=== PATIENT | female | born 1950 | race Caucasian/White ===

== ENCOUNTER → 2017-08-17 08:08 | Outpatient (CLI) | payer MEDICARE, SELFPAY ==
[2015-08-10 15:26] VITALS: BMI 45.2
[2017-08-17 13:39] LABS: Anion Gap 8 (5-15); BUN 17 mg/dL (7-18); BUN/Creat Ratio 28.8 RATIO (10-20); Calcium,Total 8.7 mg/dL (8.5-10.1); Chloride 104 mmol/L (98-107); Creatinine, Serum 0.59 mg/dL (0.55-1.02); EST Glomerular Filtration Rate 108 mL/min (>60); Est Glom Filt Rate - Afr Amer 131 mL/min (>60); Glucose 93 mg/dL (74-106); Potassium 3.8 mmol/L (3.5-5.1); Sodium Level 140 mmol/L (136-145)
== END ==
PROVIDERS: Family Provider Family Medicine; PCP Family Medicine; Visit Provider Internal Medicine
DX: E83.51 Hypocalcemia (principal)
CPT/HCPCS: 80048

== ENCOUNTER → 2018-01-12 13:28 | Outpatient (CLI) | payer MEDICARE, SELFPAY ==
[2018-01-12 14:05] LABS: Mucous, Urine 0 SEEN /hpf (<or=2+); Squamous Epithelial Cells - UA 0 SEEN /hpf (5-10); White Blood Cells 0 SEEN /hpf (0-5)
[2018-01-12 14:24] LABS: Color, Urine Yellow (Yellow); Glucose, Dipstick 100 mg/dl (Normal); Ketone-Dipstick Negative (Negative); Leukocyte Esterase-Dipstick Negative /ul (Negative); Nitrite-Dipstick Negative (Negative); Occult Blood-Urine 25 /ul (Negative); Protein-Dipstick 15 mg/dl (Negative); Urine Bilirubin Dipstick Negative (Negative); Urine Clarity Clear (Clear); Urine Urobilinogen Normal (Normal)
[2018-01-12 14:33] LABS: Bacteria RARE /hpf (None Seen); Red Blood Cells-Urine 0-5 SEEN /hpf (0-5)
[2018-01-12 14:35] LABS: Anion Gap 10 (5-15); BUN 16 mg/dL (7-18); BUN/Creat Ratio 20.9 RATIO (10-20); Calcium,Total 8.5 mg/dL (8.5-10.1); Chloride 101 mmol/L (98-107); Creatinine, Serum 0.76 mg/dL (0.55-1.02); EST Glomerular Filtration Rate 80 mL/min (>60); Est Glom Filt Rate - Afr Amer 97 mL/min (>60); Glucose 129 mg/dL (74-106); Potassium 3.6 mmol/L (3.5-5.1); Rheumatoid Factor < 10.0 IU/mL (<15); Sodium Level 137 mmol/L (136-145)
[2018-01-12 14:37] LABS: Erythrocyte Sedimentation Rate 27 mm/hr (0-30)
[2018-01-12 14:40] LABS: Hemoglobin A1c 5.8 % (4.2-6.3)
[2018-01-16 09:06] LABS: Anti-Nuclear Antibody Test Negative (.)
== END ==
LOC: LABSPEC 13:31
PROVIDERS: Family Provider Internal Medicine; PCP Internal Medicine; Visit Provider Internal Medicine
DX: M19.90 Unspecified osteoarthritis, unspecified site (principal); R35.0 Frequency of micturition
CPT/HCPCS: 80048; 81001; 83036; 85652; 86038; 86140; 86431; 87086; 87088

== ENCOUNTER → 2018-04-12 11:13 | Outpatient (CLI) | payer MEDICARE, SELFPAY ==
[2018-04-12 11:42] LABS: Hemoglobin A1c 5.5 % (4.2-6.3)
[2018-04-12 11:55] LABS: Microalbumin,Random Urine 32.1 mg/L (NO RANGE EST.); Microalbumin:Creatinine Ratio 14.2 mg/g CRE (<30 mg/g CRE)
== END ==
LOC: LABSPEC 11:15
PROVIDERS: Family Provider Internal Medicine; PCP Internal Medicine; Referring Provider Internal Medicine; Visit Provider Internal Medicine
DX: Z79.899 Other long term (current) drug therapy (principal)
CPT/HCPCS: 82043; 82570; 83036

== ENCOUNTER → 2018-08-20 11:59 | Outpatient (CLI) | payer MEDICARE, SELFPAY ==
[2018-08-20 12:41] LABS: Hemoglobin A1c 5.4 % (4.2-6.3)
== END ==
PROVIDERS: Family Provider Internal Medicine; PCP Internal Medicine; Referring Provider Internal Medicine; Visit Provider Internal Medicine
DX: Z79.899 Other long term (current) drug therapy (principal)
CPT/HCPCS: 83036

== ENCOUNTER → 2018-10-24 12:22 | Outpatient (CLI) | payer MEDICARE, SELFPAY ==
[2015-08-10 15:26] VITALS: BMI 45.2
[2018-10-24 13:46] LABS: Mucous, Urine 0 SEEN /hpf (<or=2+); Red Blood Cells-Urine 0 SEEN /hpf (0-5)
[2018-10-24 14:03] LABS: Color, Urine Yellow (Yellow); Glucose, Dipstick Normal (Normal); Ketone-Dipstick 5 mg/dl (Negative); Leukocyte Esterase-Dipstick 500 /ul (Negative); Nitrite-Dipstick Positive (Negative); Occult Blood-Urine 250 /ul (Negative); Protein-Dipstick 100 mg/dl (Negative); Specific Gravity, Urine 1.025 (1.002-1.030); Urine Bilirubin Dipstick Negative (Negative); Urine Clarity Cloudy (Clear); Urine Urobilinogen 1 mg/dl (Normal)
[2018-10-24 14:10] LABS: White Blood Cells >100 SEEN /hpf (0-5)
[2018-10-24 14:11] LABS: Amorphous Sediment 3+; Bacteria 2+ /hpf (None Seen); Squamous Epithelial Cells - UA 0-5 SEEN /hpf (5-10)
== END ==
PROVIDERS: Family Provider Internal Medicine; PCP Internal Medicine; Referring Provider Nurse Practitioner Primary Care; Visit Provider Nurse Practitioner Primary Care
DX: R31.0 Gross hematuria (principal)
CPT/HCPCS: 81001; 87086; 87088; 87186

== ENCOUNTER → 2019-03-06 | Outpatient (CLI) | payer MEDICARE, SELFPAY ==
[2015-08-10 15:26] VITALS: BMI 45.2
[2019-03-06 12:55] LABS: Hemoglobin A1c 5.2 % (4.2-6.3)
[2019-03-06 13:00] LABS: Anion Gap 9 (5-15); BUN 16 mg/dL (7-18); Calcium,Total 8.5 mg/dL (8.5-10.1); Chloride 106 mmol/L (98-107); Creatinine, Serum 0.59 mg/dL (0.55-1.02); EST Glomerular Filtration Rate 107 mL/min (>60); Est Glom Filt Rate - Afr Amer 129 mL/min (>60); Glucose 94 mg/dL (74-106); Potassium 3.5 mmol/L (3.5-5.1); Sodium Level 143 mmol/L (136-145)
[2019-03-06 13:21] LABS: Microalbumin,Random Urine 31.2 mg/L (NO RANGE EST.); Microalbumin:Creatinine Ratio 10.7 mg/g CRE (<30 mg/g CRE)
== END | disposition home or self-care (01) ==
LOC: LABSPEC 12:09
PROVIDERS: Family Provider Internal Medicine; PCP Internal Medicine; Referring Provider Internal Medicine; Visit Provider Internal Medicine
DX: I10 Essential (primary) hypertension (principal); Z79.899 Other long term (current) drug therapy; E66.01 Morbid (severe) obesity due to excess calories
CPT/HCPCS: 80048; 82043; 82570; 83036

== ENCOUNTER → 2019-09-04 | Outpatient (CLI) | payer MEDICARE, SELFPAY ==
[2019-09-04 13:31] LABS: Cholesterol 183 mg/dL (200); High Density Lipoprotein 46 mg/dL; Triglycerides 192 mg/dL; Very Low Density Lipoprotein 38 mg/dL (5-40)
== END | disposition home or self-care (01) ==
LOC: LABSPEC 12:13
PROVIDERS: PCP Internal Medicine; Referring Provider Internal Medicine; Visit Provider Internal Medicine
DX: I10 Essential (primary) hypertension (principal)
CPT/HCPCS: 80061

== ENCOUNTER → 2020-02-24 | Outpatient (CLI) | payer MEDICARE, SELFPAY ==
[2015-08-10 15:26] VITALS: BMI 45.2
[2020-02-24 15:50] LABS: Anion Gap 4 (5-15); BUN 18 mg/dL (7-18); BUN/Creat Ratio 29.6 RATIO (10-20); Calcium,Total 8.7 mg/dL (8.5-10.1); Chloride 107 mmol/L (98-107); Creatinine, Serum 0.61 mg/dL (0.55-1.02); EST Glomerular Filtration Rate 103 mL/min (>60); Est Glom Filt Rate - Afr Amer 125 mL/min (>60); Glucose 93 mg/dL (74-106); Potassium 4.1 mmol/L (3.5-5.1); Sodium Level 141 mmol/L (136-145)
== END | disposition home or self-care (01) ==
LOC: LABSPEC 12:42
PROVIDERS: PCP Internal Medicine; Referring Provider Internal Medicine; Visit Provider Internal Medicine
DX: E87.6 Hypokalemia (principal)
CPT/HCPCS: 80048

== ENCOUNTER → 2020-06-29 09:34 | Outpatient (CLI) | payer MEDICARE, SELFPAY ==
--- NOTE | 2020-06-29 09:45 | MRI_ITS ---
STUDY: MRI BRAIN WITH AND WITHOUT CONTRAST REASON FOR EXAM: Female, 70 years old. aphasia, weakness, memory issues x 6 months TECHNIQUE: Standardized multiplanar fat and water weighted pulse sequences were obtained. IV dotarem 24ml was administered for the contrast portion of the examination. COMPARISON: 02/04/2008. FINDINGS: Normal size of the ventricles and extra-axial spaces for the patient''s age. Normal white matter tracts of the supratentorial brain. Normal bilateral basal ganglia. Normal thalami. There is no extra-axial fluid accumulation. Normal flow voids within the major intracranial circulation suggesting patency by spin echo criteria. Normal venous enhancement. There is no enhancing intra-axial or extra-axial abnormality. Normal sella turcica, pituitary gland, infundibular stalk, optic chiasm and hypothalamus. Normal tectal plate and pineal gland. Normal midbrain, wilmer and medulla. Normal cerebellum. Normal basal cisterns. MRI/Brain W/WO Contrast IMPRESSION: Unremarkable unenhanced and enhanced MRI of the brain. Electronically Signed: Lisandro Nicholas MD at 13:16 EST Tel , Service support ,
[2020-06-29 10:21] LABS: Creatinine, Serum 0.69 mg/dL (0.55-1.02); EST Glomerular Filtration Rate 90 mL/min (>60); Est Glom Filt Rate - Afr Amer 109 mL/min (>60)
== END ==
PROVIDERS: PCP Internal Medicine; Referring Provider Psychiatry & Neurology Neurology; Visit Provider Psychiatry & Neurology Neurology
DX: R47.01 Aphasia (principal)
CPT/HCPCS: 36415; 70553; 82565; A9575

== ENCOUNTER 2020-07-13 09:00 | Outpatient (RCR) | payer MEDICARE, SELFPAY ==
--- NOTE | 2020-06-17 14:35 | HP.PTEVAL_ITS ---
Patient's Visit Information JAMES BURTON is a 70 year old F referred to Physical Therapy by Dr. Jordi Siddiqui MD with a diagnosis of Imbalance adn leg weakness.. Date of Evaluation: 06/17/20 Physical Therapist: Agustin Palomares DPT, OCS, CSCS - Visit Plan Frequency: 3x /Week Duration: 4-6 Weeks Plan: 3x/week for 3-6 weeks for... 1. teach gym based LE strength for eventual silver sneakers with list. 2. Teach HS and gastroc stretches for HEP. 3. Teach vestibular balance(foam, ec, static and dynamic) with pics for HEP - Subjective Having balance issues for 6 months now, not sure what started it. Can be standing in middle of room adn fall over. Usually this is with turns or some movement. No spinning. No neuropathy. Sees neuro due to memory loss and balance. Has fallen about 20x in last 6 months. Uses walker at home adn cane when out, but it is in the car right now. Does not fall with these devices. Legs feel like jellpo at end of day. Sleep OK. Has sleep apnea. No pain. Retired. Spends day regular housework, cooking. 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 Does everything she needs to do, just falls sometimes. No hobbies. Last fallw as 3 weeks ago walking into dining room - Objective VOR walking is tolerable and fair balance. Walks back to therapy I although slow. Trasnfers with UE I. Steps require UE due to strength adn lack of fw weight shift. reflexes patella and achilles 0/3 B. Sensation LE WNL to gross light touch B. Strength LE 3+ hip abd/ext/4- flexion, knee flex/ext 4 and ankles 4 B. Coordination to reciprocal toe tapping min deficts in toe tap and normal in heel tap. ROM WFL in LE, HS and gastroc/soleus show tightness B. - Balance Scores Functional Gait Assessment Score: 25 % Disability: 16.6700 CATSIB Score (Max score 120 seconds): 92 - Goals Goal 1:: FGA to diminish fall risk Goal Time Frame: 4-6 Weeks Goal 2:: I approp HEP to minimize future problems(LE strength in gym, vest balance and post leg stretches.) Goal Time Frame: 4-6 Weeks Goal 3:: Pt feel 75% more steady adn mobile Goal Time Frame: 4-6 Weeks - Rehabilitation Potential Physical Therapy Diagnosis: Imbalance and weakness from sedentarism Rehabilitation Potential: Good - Anticipated Interventions Patient/Client Instruction: Educate patient on: Condition, Plan of Care For the Purpose of:: To improve muscle performance and motor function, To increase tolerance to activity/condition/position, To improve balance, To improve safety with gait Therapeutic Exercise to Include: Strength training, Balance training, Flexibilty training, Neuromotor development For the Purpose of:: To improve gait and locomotor functions, To improve balance, To improve safety with gait Thank you for the opportunity to evaluate your patient. For Medicare and Medicare HMO plans, please review the plan of care and approve it. It will need to be FAXED BACK to us at [phone] for Medicare purposes. For Medicare only, by signing this I certify the plan of care. Please let me know if there are questions or concerns regarding this plan of care. Physician Signature: ___Date:
--- NOTE | 2020-07-13 09:40 | HP.PTDCSUM ---
It has been my pleasure to treat JAMES BURTON referred by Dr. Jordi Siddiqui MD, with the diagnosis of Imbalance adn leg weakness. for a total of 12 visit(s). Discharge Date: 07/13/20 Please see the following information for a summary of their discharge status. Subjective: Real good. Better. Able to do new things at home like getting breakfast adn housework. Safer. Doing exercises at home and in clinic. No doctor f/u. Life activities are pretty normal. % Improvement: 100 Objective/Function: FGA is +2, goals are met and pt is confident that she is much better and can continue on her own via HEP and gym exercises. Goal 1:: FGA to diminish fall risk Goal Progress: Goal Met Goal 2:: I approp HEP to minimize future problems(LE strength in gym, vest balance and post leg stretches.) Goal Progress: Goal Met Goal 3:: Pt feel 75% more steady adn mobile Goal Progress: Goal Met Plan: d/c If there are questions or concerns regarding this patient's physical therapy, please feel free to call me at [phone]. Thank you for the referral of this patient. Sincerely, Agustin Palomares, DPT, OCS, CSCS
== END 2020-07-13 19:00 | disposition home or self-care (01) ==
LOC: PT 09:00
PROVIDERS: PCP Internal Medicine; Referring Provider Psychiatry & Neurology Neurology; Visit Provider Psychiatry & Neurology Neurology
DX: R29.898 Other symptoms and signs involving the musculoskeletal system (principal)
CPT/HCPCS: 97110; 97162; 97164

== ENCOUNTER → 2020-09-23 | Outpatient (CLI) | payer MEDICARE, SELFPAY ==
[2015-08-10 15:26] VITALS: BMI 45.2
[2020-09-23 12:49] LABS: Absolute Lymphocyte Count 2.37 X10^3/uL (0.83-4.51); Absolute Neutrophil Count 5.9 X10^3/uL (2.0-7.7); Basophil# 0.05 X10^3/uL; Basophil% 0.5 % (0-1); Eosinophil# 0.31 X10^3/uL; Eosinophils% 3.3 % (0-5); Hematocrit 43.3 % (37-47); Hemoglobin 13.7 g/dL (12.0-15.0); Lymphocyte # 2.37 X10^3/ul (4.0); Lymphocyte % 25.1 % (19-41); Mean Corp Hgb Conc 31.6 g/dL (32-36); Mean Corpuscular Hgb 29.1 pg (27.0-32.0); Mean Corpuscular Volume 92.1 fL (81-99); Mean Platelet Vol. 10.3 fl (6.2-12.0); Monocyte# 0.76 X10^3/uL; Monocyte% 8.1 % (0-10); NRBC Flagged by Analyzer 0 % (0-5); Neutrophil % 62.6 % (47-70); Platelet Count 407 K/mm3 (150-450); RBC Distribution Width CV 13.4 % (11.6-14.6); RBC Distribution Width SD 45.6 fl (35.1-43.9); White Blood Count 9.4 K/mm3 (4.4-11.0)
[2020-09-23 13:14] LABS: Vitamin B12 382 pg/mL (211-911); Vitamin D,25 Hydroxy 10.4 ng/mL
[2020-09-23 13:36] LABS: ALB/GLOB Ratio 1.1 RATIO (0.9-2.4); AST(SGOT) 19 U/L (15-37); Alanine Aminotransfer ALT/SGPT 25 U/L (13-56); Albumin, Serum 3.6 g/dL (3.2-5.0); Alkaline Phosphatase 69 U/L (45-117); Anion Gap 8 (5-15); BUN 17 mg/dL (7-18); BUN/Creat Ratio 27.4 RATIO (10-20); Calcium,Total 8.3 mg/dL (8.5-10.1); Chloride 104 mmol/L (98-107); Cholesterol 193 mg/dL (200); Creatinine, Serum 0.62 mg/dL (0.55-1.02); EST Glomerular Filtration Rate 101 mL/min (>60); Est Glom Filt Rate - Afr Amer 122 mL/min (>60); Globulin 3.4 g/dL (2.2-4.2); Glucose 92 mg/dL (74-106); High Density Lipoprotein 59 mg/dL; Potassium 3.4 mmol/L (3.5-5.1); Sodium Level 139 mmol/L (136-145); Thyroid Stim Hormone (TSH) 1.66 uIU/mL (0.358-3.74); Triglycerides 193 mg/dL; Very Low Density Lipoprotein 39 mg/dL (5-40)
== END | disposition home or self-care (01) ==
LOC: LABSPEC 12:35
PROVIDERS: PCP Internal Medicine; Referring Provider Internal Medicine; Visit Provider Internal Medicine
DX: I10 Essential (primary) hypertension (principal); E55.9 Vitamin D deficiency, unspecified; G57.91 Unspecified mononeuropathy of right lower limb; E78.2 Mixed hyperlipidemia
CPT/HCPCS: 80053; 80061; 82306; 82607; 84443; 85025

== ENCOUNTER → 2021-01-01 | Outpatient (CLI) | payer MEDICARE, SELFPAY ==
[2015-08-10 15:26] VITALS: BMI 45.2
[2021-01-01 11:52] LABS: Cholesterol 194 mg/dL (200); High Density Lipoprotein 58 mg/dL; Triglycerides 128 mg/dL; Very Low Density Lipoprotein 26 mg/dL (5-40)
[2021-01-01 11:57] LABS: Vitamin B12 634 pg/mL (211-911)
== END | disposition home or self-care (01) ==
LOC: LABSPEC 11:28
PROVIDERS: PCP Internal Medicine; Visit Provider Internal Medicine
DX: I10 Essential (primary) hypertension (principal); E55.9 Vitamin D deficiency, unspecified; E53.8 Deficiency of other specified B group vitamins
CPT/HCPCS: 80061; 82306; 82607

== ENCOUNTER → 2021-03-17 | Outpatient (CLI) | payer MEDICARE, SELFPAY | END | disposition home or self-care (01) | LOC: LABSPEC 17:05 | PROVIDERS: PCP Internal Medicine; Visit Provider Physician Assistant | DX: R35.0 Frequency of micturition (principal) | CPT/HCPCS: 87086; 87088 ==

== ENCOUNTER 2021-03-23 09:40 | Inpatient (IN) | payer MEDICARE, SELFPAY ==
[2021-03-23] VITALS (28 sets, daily range): BP systolic 106–174; BP diastolic 55–98; PULSE 86–105; RESP 12–43; TEMP 36.9–37.6; O2SAT 83–96; BMI 48.2; BMI 47.7
--- NOTE | 2021-03-23 09:56 | RAD_ITS ---
STUDY: X-RAY CHEST REASON FOR EXAM: Female, 70 years old. Shortness of breath TECHNIQUE: Frontal view of the chest COMPARISON: None. FINDINGS: There are multifocal airspace opacities in both lungs, left greater than right. There are no pleural effusions. There is no pneumothorax. The heart is normal in size. The visualized osseous structures are within normal limits. RAD/Chest 1 View (Portable) IMPRESSION: Multi lobar pneumonia which is more pronounced in the left lung. COVID Pneumonia should be excluded. Electronically Signed: Max Oswald MD at 10:28 EDT Tel , Service support ,
--- NOTE | 2021-03-23 10:06 | ED.VIS.DYS ---
HPI History of Present Illness Chief Complaint: Shortness of Breath Narrative Narrative: 70-year-old female presenting with shortness of breath. She states she has been this way since Monday. She was told she has a urinary tract infection and she has been on Keflex. Patient admits to having multiple episodes of diarrhea since Monday. She has generalized weakness. She is had a fever of 101 at home intermittently. She denies chest pain but admits to shortness of breath. Patient has had the first shot of her Pfizer vaccine 2 weeks ago. Patient states she wears CPAP at night but does not wear oxygen on a regular basis. [facility] Medical History (Updated 03/23/21 @ 10:51 by Heidi Pagan) Hypertension Home Medications aspirin 325 mg PO BIDCM #60 tablet 08/12/15 [Rx Last Taken Unknown] hydrocodone-acetaminophen 1 - 2 tab PO Q4H PRN PRN #90 tablet 08/12/15 [Rx Last Taken Unknown] scopolamine base 1.5 mg TRANSDERMAL Q3D #5 patch 08/12/15 [Rx Last Taken Unknown] cephalexin 500 mg PO 03/23/21 [History Last Taken Unknown] hydrochlorothiazide 12.5 mg PO DAILY 03/23/21 [History Last Taken Unknown] Allergy/AdvReac Type Severity Reaction Status Date / Time Sulfa (Sulfonamide Allergy Mucosal Verified 03/23/21 09:52 Antibiotics) lesions meperidine HCl [From Demerol] AdvReac Nausea/Vom/ Verified 03/23/21 09:52 Diarrhea Social History Smoking Status: Never smoker [facility] ED Constitutional Constitutional ED: Reports chills and fever(s) Eyes Eyes: Denies blurry vision or diplopia ENT ENT ED: Denies rhinorrhea or sore throat Cardiovascular Cardiovascular: Denies chest pain or palpitations Respiratory/Chest Respiratory/Chest: Reports cough and dyspnea Gastrointestinal Gastrointestinal: Reports abdominal pain, diarrhea, nausea and vomiting Genitourinary Genitourinary ED: Reports dysuria; Denies hematuria Musculoskeletal Musculoskeletal: Reports myalgias Integumentary Denies Abrasions or rash Neurologic Neurologic: Reports paresthesias; Denies headache(s) EXAM Physical Exam Const Vital Signs: 03/23/21 09:42 03/23/21 09:49 03/23/21 09:50 Temperature 99.6 F H 99.6 F H Temperature Source Temporal Temporal Pulse Rate 92 92 Respiratory Rate 21 H 21 H Respiratory Effort Short of Breath Labored Accessory Muscle Use Respiratory Depth Shallow Respiratory Pattern Irregular Blood Pressure 139/78 H 139/78 H Blood Pressure Mean 98 98 Pulse Ox 86 86 Oxygen Delivery Method Nasal Cannula Nasal Cannula Nasal Cannula Oxygen Flow Rate (L/min) 9 9 10 Fraction of Inspired Oxygen (FIO2) 03/23/21 10:02 03/23/21 10:43 03/23/21 10:49 Temperature 99.7 F H Temperature Source Temporal Pulse Rate 88 90 Respiratory Rate 35 H 33 H Respiratory Effort Respiratory Depth Respiratory Pattern Blood Pressure 145/84 H Blood Pressure Mean 104 Pulse Ox 90 96 90 Oxygen Delivery Method Nasal Cannula Bi-pap Oxygen Flow Rate (L/min) 15 Fraction of Inspired Oxygen (FIO2) 50 03/23/21 11:00 03/23/21 11:02 03/23/21 11:54 Temperature 99.2 F H Temperature Source Temporal Pulse Rate 91 86 Respiratory Rate 34 H 32 H Respiratory Effort Respiratory Depth Respiratory Pattern Blood Pressure 145/84 H Blood Pressure Mean 104 Pulse Ox 90 91 95 Oxygen Delivery Method Bi-pap Oxygen Flow Rate (L/min) Fraction of Inspired Oxygen (FIO2) 60 60 03/23/21 12:02 03/23/21 13:00 03/23/21 13:14 Temperature 99.2 F H 99 F Temperature Source Temporal Temporal Pulse Rate 87 86 93 Respiratory Rate 33 H 35 H 31 H Respiratory Effort Respiratory Depth Respiratory Pattern Blood Pressure 126/95 H 152/82 H Blood Pressure Mean 105 105 Pulse Ox 89 90 91 Oxygen Delivery Method Bi-pap Bi-pap Oxygen Flow Rate (L/min) Fraction of Inspired Oxygen (FIO2) 60 03/23/21 14:00 03/23/21 14:13 Temperature 98.4 F Temperature Source Temporal Pulse Rate 93 91 Respiratory Rate 38 H 38 H Respiratory Effort Respiratory Depth Respiratory Pattern Blood Pressure 169/89 H Blood Pressure Mean 115 Pulse Ox 92 94 Oxygen Delivery Method Bi-pap Oxygen Flow Rate (L/min) Fraction of Inspired Oxygen (FIO2) 100 100 Positive well nourished and obese Nutritional Appearance: obese HEENT Reports moist mucous membranes atraumatic Eyes PERRL and EOMs intact bilaterally Resp Resp Narrative: Tachypneic Effort and Inspection: Negative for pain with movement Auscultation: diminished lung sounds Cardio regular rate and regular rhythm GI non-distended GI Narrative: Mild epigastric tenderness. Palpation: soft Neuro oriented x3 and CN's II-XII intact bilaterally Sensorium / Orientation: alert Psych mental status grossly normal Skin Lesions: no lesions Rashes: no rashes MDM MDM MDM Narrative Medical decision making narrative: Patient presenting with shortness of breath as well as nausea, vomiting, diarrhea. This is been ongoing since Monday. Patient states he has currently been treated for UTI with Keflex. She had multiple episodes of diarrhea. She states that her is ill but is not hospitalized. Patient does not typically have to wear oxygen and she arrives with a pulse ox of 86% on room air. She has been placed on a nasal cannula she is currently at 90%. She denies any chest pain. I did initially attempt to put her on nasal cannula however she maintain sats in the mid 80s. For this reason she was placed on BiPAP and appears to be doing well on it. She is maintaining O2 sats of 92 to 93%. CBC shows no leukocytosis. Patient is lymphopenic. Patient also was hyponatremic with a sodium 128 and hypokalemic with a potassium of 2.8. Patient is given 40 mEq of potassium IV because she is currently on BiPAP. Magnesium is 1.7. Lactic acid was slightly elevated at 2.3. Chest x-ray on my interpretation shows multi lobar pneumonia and the radiologist does agree. Patient had an elevated D-dimer at 3.27 and had a CTA of the chest which did not identify any pulmonary emboli or dissection. This also did not imply multilobar pneumonia. Patient's initial Covid test was negative however given she would need to be admitted to the ICU I did obtain the PCR test which did return positive.Patient's EKG on my interpretation shows a sinus rhythm at [address] changes. Troponin did return elevated at 114. I discussed this with Dr. Rivera and he reviewed the EKG as well. He felt likely the troponin was elevated due to the hypoxia. Impression: 1. COVID-19 pneumonitis 2. Hypoxic respiratory failure 3. Hypokalemia 4. Hyponatremia Lab Data Attestation: I reviewed the patient's lab results. Labs: Laboratory Results - last 24 hr 03/23/21 03/23/21 03/23/21 10:05 10:05 10:05 WBC 8.6 RBC 5.02 Hgb 14.5 Hct 43.0 MCV 85.7 MCH 28.9 MCHC 33.7 RDW Std Deviation 40.7 RDW Coeff of Sebastian 13.1 Plt Count 352 MPV 8.9 Immature Gran % (Auto) 1.600 H Neut % (Auto) 80.4 H Lymph % (Auto) 10.7 L Hoke % (Auto) 7.1 Eos % (Auto) 0.0 Baso % (Auto) 0.2 Absolute Neuts (auto) 6.9 Absolute Lymphs (auto) 0.92 Nucleated RBC % 0 D-Dimer Quant (PE/DVT) 3.27 H* Sodium 128 L Potassium 2.8 L Chloride 86 L Carbon Dioxide 32.0 Anion Gap 10 BUN 12 Creatinine 0.58 Estim Creat Clear Calc 41.40 Est GFR (MDRD) Af Amer 131 Est GFR (MDRD) Non-Af 109 BUN/Creatinine Ratio 20.6 H Glucose 133 H Lactic Acid Calcium 8.1 L Magnesium Total Bilirubin 0.90 AST 94 H ALT 86 H Alkaline Phosphatase 74 Troponin I High Sens 114 H Total Protein 6.8 Albumin 2.6 L Globulin 4.2 Albumin/Globulin Ratio 0.6 L Procalcitonin Urine Color Urine Clarity Urine pH Ur Specific [place] Urine Protein Urine Glucose (UA) Urine Ketones Urine Occult Blood Urine Nitrite Urine Bilirubin Urine Urobilinogen Ur Leukocyte Esterase Urine RBC Urine WBC Ur Squamous Epith Cells Urine Bacteria Urine Mucus COVID-19 (BENITO) 03/23/21 03/23/21 03/23/21 10:05 10:05 10:05 WBC RBC Hgb Hct MCV MCH MCHC RDW Std Deviation RDW Coeff of Sebastian Plt Count MPV Immature Gran % (Auto) Neut % (Auto) Lymph % (Auto) Hoke % (Auto) Eos % (Auto) Baso % (Auto) Absolute Neuts (auto) Absolute Lymphs (auto) Nucleated RBC % D-Dimer Quant (PE/DVT) Sodium Potassium Chloride Carbon Dioxide Anion Gap BUN Creatinine Estim Creat Clear Calc Est GFR (MDRD) Af Amer Est GFR (MDRD) Non-Af BUN/Creatinine Ratio Glucose Lactic Acid 2.3 H* Calcium Magnesium 1.7 Total Bilirubin AST ALT Alkaline Phosphatase Troponin I High Sens Total Protein Albumin Globulin Albumin/Globulin Ratio Procalcitonin 0.14 H Urine Color Urine Clarity Urine pH Ur Specific [place] Urine Protein Urine Glucose (UA) Urine Ketones Urine Occult Blood Urine Nitrite Urine Bilirubin Urine Urobilinogen Ur Leukocyte Esterase Urine RBC Urine WBC Ur Squamous Epith Cells Urine Bacteria Urine Mucus COVID-19 (BENITO) 03/23/21 03/23/21 10:58 11:15 WBC RBC Hgb Hct MCV MCH MCHC RDW Std Deviation RDW Coeff of Sebastian Plt Count MPV Immature Gran % (Auto) Neut % (Auto) Lymph % (Auto) [place]oke % (Auto) Eos % (Auto) Baso % (Auto) Absolute Neuts (auto) Absolute Lymphs (auto) Nucleated RBC % D-Dimer Quant (PE/DVT) Sodium Potassium Chloride Carbon Dioxide Anion Gap BUN Creatinine Estim Creat Clear Calc Est GFR (MDRD) Af Amer Est GFR (MDRD) Non-Af BUN/Creatinine Ratio Glucose Lactic Acid Calcium Magnesium Total Bilirubin AST ALT Alkaline Phosphatase Troponin I High Sens Total Protein Albumin Globulin Albumin/Globulin Ratio Procalcitonin Urine Color Yellow Urine Clarity Clear Urine pH 6.5 Ur Specific [place] 1.010 Urine Protein 100 H Urine Glucose (UA) 100 H Urine Ketones 5 H Urine Occult Blood 50 H Urine Nitrite Negative Urine Bilirubin 1 H Urine Urobilinogen 8 H Ur Leukocyte Esterase 25 H Urine RBC 0-5 SEEN Urine WBC 0-5 SEEN Ur Squamous Epith Cells 0-5 SEEN Urine Bacteria 0 SEEN Urine Mucus 0 SEEN COVID-19 (BENITO) Detected Radiography Diagnostic Testing: Radiology Impression Chest X-Ray 03/23/21 09:56 IMPRESSION: Multi lobar pneumonia which is more pronounced in the left lung. COVID Pneumonia should be excluded. Electronically Signed: Max Oswald MD at 10:28 EDT Tel , Service support , Chest CTA 03/23/21 13:07 IMPRESSION: Significantly limited study. No central or proximal segmental pulmonary embolus. The remainder of the examination is nondiagnostic. No thoracic aortic aneurysm or dissection. Multifocal ground glass opacities throughout both lungs, consistent with pneumonia. Hepatic cysts. Electronically Signed: Max Oswald MD at 13:57 EDT Tel , Service support , Discharge Plan Triage Chief Complaint: Shortness of Breath ED Provider: Saurav Sawant Dx/Rx/DC Orders Primary Care Provider: Selina Barrios
[2021-03-23 10:17] LABS: Absolute Lymphocyte Count 0.92 X10^3/uL (0.83-4.51); Absolute Neutrophil Count 6.9 X10^3/uL (2.0-7.7); Basophil# 0.02 X10^3/uL; Basophil% 0.2 % (0-1); Hemoglobin 14.5 g/dL (12.0-15.0); Lymphocyte # 0.92 X10^3/ul (0.83-4.51); Lymphocyte % 10.7 % (19-41); Mean Corp Hgb Conc 33.7 g/dL (32-36); Mean Corpuscular Hgb 28.9 pg (27.0-32.0); Mean Corpuscular Volume 85.7 fL (81-99); Mean Platelet Vol. 8.9 fl (6.2-12.0); Monocyte# 0.61 X10^3/uL; Monocyte% 7.1 % (0-10); NRBC Flagged by Analyzer 0 % (0-5); Neutrophil # 6.92 X10^3/uL (2.7-7.7); Neutrophil % 80.4 % (47-70); Platelet Count 352 K/mm3 (150-450); RBC Distribution Width CV 13.1 % (11.6-14.6); RBC Distribution Width SD 40.7 fl (35.1-43.9); Red Blood Count 5.02 M/mm3 (4.2-5.4); White Blood Count 8.6 K/mm3 (4.4-11.0)
[2021-03-23 10:33] LABS: D-Dimer Quantitative (DVT/PE) 3.27 FEU/ug/m (0.27-0.49)
[2021-03-23 10:37] LABS: ALB/GLOB Ratio 0.6 RATIO (0.9-2.4); AST(SGOT) 94 U/L (15-37); Alanine Aminotransfer ALT/SGPT 86 U/L (13-56); Albumin, Serum 2.6 g/dL (3.2-5.0); Alkaline Phosphatase 74 U/L (45-117); Anion Gap 10 (5-15); BUN 12 mg/dL (7-18); BUN/Creat Ratio 20.6 RATIO (10-20); Calcium,Total 8.1 mg/dL (8.5-10.1); Chloride 86 mmol/L (98-107); Creatinine, Serum 0.58 mg/dL (0.55-1.02); EST Glomerular Filtration Rate 109 mL/min (>60); Est Glom Filt Rate - Afr Amer 131 mL/min (>60); Globulin 4.2 g/dL (2.2-4.2); Glucose 133 mg/dL (74-106); Potassium 2.8 mmol/L (3.5-5.1); Protein, Total 6.8 g/dL (6.4-8.2); Sodium Level 128 mmol/L (136-145); Troponin-I HS 114 pg/mL (3.0-54.0)
[2021-03-23 10:40] LABS: Procalcitonin 0.14 ng/mL (0.00-0.09)
[2021-03-23 10:45] LABS: Lactic Acid 2.3 mmol/L (0.4-1.9)
[2021-03-23 11:18] LABS: Bacteria 0 SEEN /hpf (None Seen); Mucous, Urine 0 SEEN /hpf (<or=2+)
[2021-03-23 11:19] LABS: Color, Urine Yellow (Yellow); Glucose, Dipstick 100 mg/dl (Normal); Ketone-Dipstick 5 mg/dl (Negative); Leukocyte Esterase-Dipstick 25 /ul (Negative); Nitrite-Dipstick Negative (Negative); Occult Blood-Urine 50 /ul (Negative); Protein-Dipstick 100 mg/dl (Negative); Urine Bilirubin Dipstick 1 mg/dL (Negative); Urine Clarity Clear (Clear); Urine Urobilinogen 8 mg/dl (Normal); Urine pH 6.5 (5.0 - 8.0)
[2021-03-23 11:26] LABS: Red Blood Cells-Urine 0-5 SEEN /hpf (0-5); Squamous Epithelial Cells - UA 0-5 SEEN /hpf (5-10); White Blood Cells 0-5 SEEN /hpf (0-5)
[2021-03-23] MEDS: Ondansetron 4 MG/2 ML Vial IV ×2 (11:35→18:04)
--- NOTE | 2021-03-23 13:07 | CT_ITS ---
STUDY: CTA CHEST REASON FOR EXAM: Female, 70 years old. Dyspnea RADIATION DOSAGE (If Supplied By Facility): CTDIvol = ( 15.04 ) mGy, DLP = ( 450.31 ) mGycm TECHNIQUE: The examination was performed with the intravenous administration of IV 100mL [id number]-370. Post-processing of the angiographic images was performed, with multiplanar reformation and 3D reconstruction. Individualized dose optimization techniques were used for this CT. COMPARISON: None. FINDINGS: The study is significantly limited by patient motion and by streak artifact due to the patient''s arms being at her sides. There are multifocal ground glass opacities throughout both lungs. There are no pleural effusions. There is no pneumothorax. There is no central or proximal segmental pulmonary embolus. The remainder of the examination is nondiagnostic. There is no thoracic aortic aneurysm or dissection. The heart and pericardium are within normal limits. There is no thoracic lymphadenopathy. Images through the upper abdomen demonstrate multiple hepatic cysts which are not fully visualized on this exam. CT/CTA Chest W/WO Contrast IMPRESSION: Significantly limited study. No central or proximal segmental pulmonary embolus. The remainder of the examination is nondiagnostic. No thoracic aortic aneurysm or dissection. Multifocal ground glass opacities throughout both lungs, consistent with pneumonia. Hepatic cysts. Electronically Signed: Max Oswald MD at 13:57 EDT Tel , Service support ,
[2021-03-23 14:15] LABS: Reflex Lactate? Y
--- NOTE | 2021-03-23 14:15 | NURSING ---
HOSPITALIST FOR DR DUKES
--- NOTE | 2021-03-23 14:21 | HP.PCM.HOS_ITS ---
HPI - General General Date of Admission: 03/23/21 Date of Service: 03/23/21 Chief Complaint: Shortness of breath - 1 week HPI Narrative JAMES BURTON, is a 70 F who presents with progressive shortness of breath ongoing for 1 week. Patient stated that she cut vaccinated 2 weeks ago.. Patient lives with her who is also unwell. She admits to general aches. Denied fever or chills. She admits to progressive shortness of breath. Denies any loss of smell or taste. Denied any fever or chills. Admits to diarrhea. She has had 2 bowel movements today, loose, nonbloody. The EMS was called. Patient was found to be saturating on 15 L of oxygen via nonrebreather mask. In the ED, patient was found to be saturating 86% on 9 L of oxygen. She was transitioned to BiPAP. [facility] Medical History CPAP (continuous positive airway pressure) dependence Hypertension Sleep apnea Home Medications aspirin 325 mg PO BIDCM #60 tablet 08/12/15 [Rx Last Taken Unknown] hydrocodone-acetaminophen 1 - 2 tab PO Q4H PRN PRN #90 tablet 08/12/15 [Rx Last Taken Unknown] scopolamine base 1.5 mg TRANSDERMAL Q3D #5 patch 08/12/15 [Rx Last Taken Unknown] cephalexin 500 mg PO 03/23/21 [History Last Taken Unknown] hydrochlorothiazide 12.5 mg PO DAILY 03/23/21 [History Last Taken Unknown] Allergy/AdvReac Type Severity Reaction Status Date / Time Sulfa (Sulfonamide Allergy Mucosal Verified 03/23/21 09:52 Antibiotics) lesions meperidine HCl [From Demerol] AdvReac Nausea/Vom/ Verified 03/23/21 09:52 Diarrhea Family History Mother No problems noted. unable to obtain unable to obtain Social History (Updated 03/23/21 @ 17:09 by Heidi Brooks) household members: spouse Smoking Status: Never smoker ROS ROS Narrative Constitutional: Reports: Malaise, Weakness, Fatigue. Denies: Anorexia, Chills, Fever, Night Sweats, Weight Change Eyes: Denies: Blurred vision, Cataracts, Conjunctivae Inflammation, Pain, Redness, Vision Change HEENT: Denies: Difficulty Hearing, Difficulty Swallowing, Head Aches, Hearing Changes, Sinus Congestion, Sinus Drainage Cardiovascular: Denies: Chest Pain, Orthopnea, Palpitations Respiratory: See HPI Gastrointestinal: Admits to diarrhea denies: Abdominal Pain, Nausea, Vomiting Genitourinary: Denies: Dysuria Musculoskeletal: Denies: Joint Pain, Joint stiffness, Joint swelling, Joint Tenderness Skin: Denies: Rash, Wounds Neurological: Denies: Numbness, Tingling, Focal weakness Vital Signs Vital Signs Vital Signs: 03/23/21 09:42 03/23/21 09:49 03/23/21 09:50 Temperature 99.6 F H 99.6 F H Temperature Source Temporal Temporal Pulse Rate 92 92 Respiratory Rate 21 H 21 H Respiratory Effort Short of Breath Labored Accessory Muscle Use Respiratory Depth Shallow Respiratory Pattern Irregular Blood Pressure 139/78 H 139/78 H Blood Pressure Mean 98 98 Pulse Ox 86 86 Oxygen Delivery Method Nasal Cannula Nasal Cannula Nasal Cannula Oxygen Flow Rate (L/min) 9 9 10 Fraction of Inspired Oxygen (FIO2) 03/23/21 10:02 03/23/21 10:43 03/23/21 10:49 Temperature 99.7 F H Temperature Source Temporal Pulse Rate 88 90 Respiratory Rate 35 H 33 H Respiratory Effort Respiratory Depth Respiratory Pattern Blood Pressure 145/84 H Blood Pressure Mean 104 Pulse Ox 90 96 90 Oxygen Delivery Method Nasal Cannula Bi-pap Oxygen Flow Rate (L/min) 15 Fraction of Inspired Oxygen (FIO2) 50 03/23/21 11:00 03/23/21 11:02 03/23/21 11:54 Temperature 99.2 F H Temperature Source Temporal Pulse Rate 91 86 Respiratory Rate 34 H 32 H Respiratory Effort Respiratory Depth Respiratory Pattern Blood Pressure 145/84 H Blood Pressure Mean 104 Pulse Ox 90 91 95 Oxygen Delivery Method Bi-pap Oxygen Flow Rate (L/min) Fraction of Inspired Oxygen (FIO2) 60 60 03/23/21 12:02 03/23/21 13:00 03/23/21 13:14 Temperature 99.2 F H 99 F Temperature Source Temporal Temporal Pulse Rate 87 86 93 Respiratory Rate 33 H 35 H 31 H Respiratory Effort Respiratory Depth Respiratory Pattern Blood Pressure 126/95 H 152/82 H Blood Pressure Mean 105 105 Pulse Ox 89 90 91 Oxygen Delivery Method Bi-pap Bi-pap Oxygen Flow Rate (L/min) Fraction of Inspired Oxygen (FIO2) 60 03/23/21 14:13 Temperature Temperature Source Pulse Rate 91 Respiratory Rate 38 H Respiratory Effort Respiratory Depth Respiratory Pattern Blood Pressure Blood Pressure Mean Pulse Ox 94 Oxygen Delivery Method Oxygen Flow Rate (L/min) Fraction of Inspired Oxygen (FIO2) 100 Weight Weight: 119.7 kg Body Mass Index (BMI) 48.2 Physical Exam Narrative Physical exam: General: Alert, Oriented x3, Cooperative, in mild to moderate respiratory distress, on BiPAP HEENT: Atraumatic Oral: Dry Mucosa Neck: Supple Lungs: Diminished, crackles at the bases Cardiovascular: HS I+II, regular, no murmurs Abdomen: Bowel Sounds Present, Soft, Non Tender Extremities: Bilateral pedal edema +1 Skin: No rashes, No breakdown Neurological: Grossly intact Psych/Mental Status: Appropriate Results Lab / Micro Data Result Diagrams: 03/23/21 10:05 03/23/21 10:05 Labs: Laboratory Results - last 24 hr 03/23/21 10:05: WBC 8.6, RBC 5.02, Hgb 14.5, Hct 43.0, MCV 85.7, MCH 28.9, MCHC 33.7, RDW Std Deviation 40.7, RDW Coeff of Sebastian 13.1, Plt Count 352, MPV 8.9, Immature Gran % (Auto) 1.600 H, Neut % (Auto) 80.4 H, Lymph % (Auto) 10.7 L, [place] % (Auto) 7.1, Eos % (Auto) 0.0, Baso % (Auto) 0.2, Absolute Neuts (auto) 6.9, Absolute Lymphs (auto) 0.92, Nucleated RBC % 0 03/23/21 10:05: D-Dimer Quant (PE/DVT) 3.27 H* 03/23/21 10:05: Sodium 128 L, Potassium 2.8 L, Chloride 86 L, Carbon Dioxide 32.0, Anion Gap 10, BUN 12, Creatinine 0.58, Estim Creat Clear Calc 41.40, Est GFR (MDRD) Af Amer 131, Est GFR (MDRD) Non-Af 109, BUN/Creatinine Ratio 20.6 H, Glucose 133 H, Calcium 8.1 L, Total Bilirubin 0.90, AST 94 H, ALT 86 H, Alkaline Phosphatase 74, Troponin I High Sens 114 H, Total Protein 6.8, Albumin 2.6 L, Globulin 4.2, Albumin/Globulin Ratio 0.6 L 03/23/21 10:05: Lactic Acid 2.3 H* 03/23/21 10:05: Procalcitonin 0.14 H 03/23/21 10:58: COVID-19 (BENITO) Detected 03/23/21 11:15: Urine Color Yellow, Urine Clarity Clear, Urine pH 6.5, Ur Specific [place] 1.010, Urine Protein 100 H, Urine Glucose (UA) 100 H, Urine Ketones 5 H, Urine Occult Blood 50 H, Urine Nitrite Negative, Urine Bilirubin 1 H, Urine Urobilinogen 8 H, Ur Leukocyte Esterase 25 H, Urine RBC 0-5 SEEN, Urine WBC 0-5 SEEN, Ur Squamous Epith Cells 0-5 SEEN, Urine Bacteria 0 SEEN, Urine Mucus 0 SEEN Micro: Microbiology 03/23/21 09:55 Nasal Secretion SARS-CoV-2 Antigen (Rapid) - Final Radiology Impression Chest X-Ray 03/23/21 09:56 IMPRESSION: Multi lobar pneumonia which is more pronounced in the left lung. COVID Pneumonia should be excluded. Electronically Signed: Max Oswald MD at 10:28 EDT Tel , Service support , Chest CTA 03/23/21 13:07 IMPRESSION: Significantly limited study. No central or proximal segmental pulmonary embolus. The remainder of the examination is nondiagnostic. No thoracic aortic aneurysm or dissection. Multifocal ground glass opacities throughout both lungs, consistent with pneumonia. Hepatic cysts. Electronically Signed: Max Oswald MD at 13:57 EDT Tel , Service support , Assessment & Plan Assessment/Plan (1) Acute respiratory failure due to COVID-19: (2) Osteoarthritis: (3) Elevated d-dimer: (4) Hypokalemia: (5) Hypomagnesemia: (6) Lactic acidosis: (7) Hyponatremia: PLAN: 1. Acute hypoxic respiratory failure secondary to COVID-19 pneumonia Patient was saturating 86% on 9 L of oxygen in the ED She exhibits increased work of breathing; on BiPAP Chest x-ray showed multilobar pneumonia more pronounced in the left lung CTA of the chest was negative for acute PE, showed multifocal groundglass opacities throughout both lungs Continue with breathing treatments, IV steroids, start remdesivir(symptoms started a week ago) Encourage use of incentive spirometer. Wean off oxygen for SPO2 more than 94% Check Urine streptococcal and Legionella antigen Pulmonology consult 2. Electrolyte imbalances?severe hypokalemia, hypomagnesemia, hyponatremia, secondary to COVID-19 pneumonia and diarrhea Will hold hydrochlorothiazide Replace, recheck in a.m. 3. Acute diarrhea likely secondary to COVID-19 pneumonia We will rule out infectious etiology Check enteric panel stat 4. Elevated D-dimer, CTA of the chest is negative We will continue on Lovenox twice daily 5. Rest of chronic medical conditions including morbid obesity, hypertension - remained stable I discussed and explained in details the various types of CODE STATUS-full code, DNR CCA, DNR CC. Patient chose to be full code. She wants to be intubated in the event of worsening respiratory status Time spent discussing CODE STATUS 17 minutes Charges/Coding Visit Charges Inpatient E&M: 83116 Init Hosp L3 Procedures Hospitalists Procedures: 86160 Advncd Care Plan 30 Min
[2021-03-23] MEDS: dexAMETHasone 10 MG/ML Vial 6 MG IV (14:30)
[2021-03-23 14:39] LABS: Magnesium 1.7 mg/dL (1.6-2.6)
--- NOTE | 2021-03-23 14:42 | EKG12_ITS ---
Test Reason : SOB Blood Pressure : / mmHG Vent. Rate : 096 BPM Atrial Rate : 096 BPM P-R Int : 148 ms QRS Dur : 080 ms QT Int : 390 ms P-R-T Axes : 028 023 014 degrees QTc Int : 492 ms Normal sinus rhythm Nonspecific ST and T wave abnormality Abnormal ECG Confirmed by POLLO ALVAREZ, KENTON ([id number]), editor publications BYRON MAGUIRE ([id number]) on 03/24/2021 1:21:59 PM Referred By: NAOMI Confirmed By:KENTON ABAD MD
--- NOTE | 2021-03-23 14:43 | NURSING ---
CV ICU 203
[2021-03-23] MEDS: Potassium Chloride 10mEq/100mL 10 MEQ/100 ML IV.SOLN. 100 MEQ IV BOLUS ×6 (14:57→22:30)
[2021-03-23 17:39] LABS: BNP,B-Type NATRIURETIC PEPTIDE 31.1 pg/mL (0-100)
[2021-03-23] MEDS: Furosemide 40 MG/4 ML Vial IV (18:04)
[2021-03-23] MEDS: 0.9% Saline Lock 10 ML Syringe IV (18:04)
--- NOTE | 2021-03-23 19:21 | NURSING ---
quinn razo number is [phone]
[2021-03-23] MEDS: Ipratropium/Albuterol Sulfate 3 ML AMPUL.NEB INHALATION (19:35)
--- NOTE | 2021-03-23 20:37 | EX.PCM.CONCC ---
Assessment & Plan Assessment/Plan (1) Acute respiratory failure due to COVID-19: (2) Osteoarthritis: PLAN: RECOMMENDATIONS: 1. Agree with remdesivir and Decadron 2. Consider infectious disease consult for MIRZA therapy 3. Diuretics as possible given renal function 4. Increase CPAP if necessary. Cannot exclude the need for intubation 5. Lovenox twice daily given lack of PE on CTA 6. Judicious use of IV fluids given COVID-19 diagnosis IMPRESSIONS: 1. Acute hypoxic respiratory failure secondary to COVID-19 pneumonia Patient would qualify for Decadron and Remdesivir therapy. Consider infectious disease consult for additional anti-inflammatories. Agree with work-up for secondary bacterial infection, but procalcitonin is not impressive. Will obtain sputum culture if patient does require intubation. Increase in EPAP may be helpful given patient's baseline GIOVANA. Encourage incentive spirometer and out of bed as tolerated. Unfortunately, patient was unable to complete vaccination course prior to lino COVID-19. Unclear implications for clinical course. Will use Haldol to facilitate compliance with BiPAP therapy 2. Severe hypokalemia/hypomagnesemia/hyponatremia Likely secondary to GI losses. Aggressive supplementation as appropriate. Patient may need Lasix therapy to compensate for required volumes. 3. Morbid obesity/hypertension/unvaccinated status Complicates care, management, recovery and prognosis. Hold antihypertensives for now. Recommend Pepcid and Lovenox prophylaxis. Did confirm patient is a full code. TIME: 37 minutes critical care time spent addressing patient's acute hypoxic respiratory failure, electrolyte imbalances, review of all data and collaboration with care team (7:30 PM to 9 PM) HPI Consult Data Date of Consult: 03/23/21 HPI Narrative HPI Narrative: JAMES BURTON is a 70 F, with past medical history listed below, who presents to [facility] on 03/23/2021 for evaluation secondary to worsening shortness of breath. Patient reportedly started to have symptoms on Monday. Patient reportedly was seen and diagnosed with a urinary tract infection and placed on Keflex. Since that time, patient has multiple episodes of diarrhea with generalized weakness. Patient states that she did have a fever of 101.3 ?F at home. Patient denied any chest pain. Patient did report that she tends to wear CPAP at baseline, but does not need supplemental oxygen. Patient does report that she had her first Pfizer vaccine 2 weeks ago. In the ER, patient was noted to have a temperature of 99.7 ?F and hypoxia despite 9 L nasal cannula. Patient was eventually placed on BiPAP therapy and remained tachypneic with respiratory rates in the 30s. Blood pressures were adequate. Laboratory data was relatively unremarkable except for an elevated D-dimer, sodium of 128, potassium of 2.8 and chloride of 86. Renal function was within normal limits. Glucose was slightly elevated along with LFTs. Lactate was elevated at 2.3 but procalcitonin was only 0.14. UA was not suggestive of an acute infection. COVID-19 was noted. Patient had a chest x-ray with multilobar pneumonia and this was confirmed by a CTA showing bilateral groundglass opacities, but no PE. The patient was admitted to the intensive care unit on BiPAP therapy. Patient initially had marginal saturations on 100% BiPAP. Patient was increased on EPAP to 8 as she had reported that her CPAP was possibly at 9. This did lead to improvement in saturations to the low 90s. Patient readily admits that she has anxiety at baseline. Patient states she is willing to be intubated if necessary. Patient denies any respiratory history outside of sleep apnea. Patient has never required supplemental oxygen or an inhaler previously. Patient has never had a pulmonary function test. Patient does report occasional muscle cramps over the last 2 to 3 days Review of systems otherwise negative from a constitutional, HEENT, respiratory, cardiovascular, GI, genitourinary, musculoskeletal, skin, neurologic, psychiatric and hematologic system unless stated above. [facility] Medical History CPAP (continuous positive airway pressure) dependence Hypertension Sleep apnea Home Medications aspirin 325 mg PO BIDCM #60 tablet 08/12/15 [Rx Last Taken Unknown] hydrocodone-acetaminophen 1 - 2 tab PO Q4H PRN PRN #90 tablet 08/12/15 [Rx Last Taken Unknown] scopolamine base 1.5 mg TRANSDERMAL Q3D #5 patch 08/12/15 [Rx Last Taken Unknown] cephalexin 500 mg PO 03/23/21 [History Last Taken Unknown] hydrochlorothiazide 12.5 mg PO DAILY 03/23/21 [History Last Taken Unknown] Allergy/AdvReac Type Severity Reaction Status Date / Time Sulfa (Sulfonamide Allergy Mucosal Verified 03/23/21 09:52 Antibiotics) lesions meperidine HCl [From Demerol] AdvReac Nausea/Vom/ Verified 03/23/21 09:52 Diarrhea Family History Mother No problems noted. Social History household members: spouse Smoking Status: Never smoker ROS ROS Narrative See HPI Physical Exam Const alert and oriented x3 General Appearance: cooperative, well developed, in distress Positive for mild and on BiPAP Nutritional Appearance: morbidly obese HEENT normocephalic, head/scalp atraumatic and moist oral mucous membranes Eyes PERRL and EOMs intact bilaterally Neck full ROM and no lymphadenopathy Chest inspection of chest normal Resp Auscultation: rales and diminished lung sounds; Negative for rhonchi or wheezes Percussion: Negative for dullness Cardio regular rate, regular rhythm, S1 normal heart sound, S2 normal heart sound, no murmurs, no rub and no gallops GI normal to inspection, nondistended, normoactive bowel sounds no CVA tenderness Extremity General Extremity: edema bilateral lower extremity (2+); Negative for clubbing or cyanosis Skin no rashes or lesions noted Neuro oriented x3, CN's II-XII intact bilaterally, moves all extremities and no focal motor deficits Psych cooperative and affect normal Lab / Micro Data Result Diagrams: 03/23/21 10:05 03/23/21 10:05 Labs: Laboratory Results - last 24 hr 03/23/21 10:05: WBC 8.6, RBC 5.02, Hgb 14.5, Hct 43.0, MCV 85.7, MCH 28.9, MCHC 33.7, RDW Std Deviation 40.7, RDW Coeff of Sebastian 13.1, Plt Count 352, MPV 8.9, Immature Gran % (Auto) 1.600 H, Neut % (Auto) 80.4 H, Lymph % (Auto) 10.7 L, [place] % (Auto) 7.1, Eos % (Auto) 0.0, Baso % (Auto) 0.2, Absolute Neuts (auto) 6.9, Absolute Lymphs (auto) 0.92, Nucleated RBC % 0 03/23/21 10:05: D-Dimer Quant (PE/DVT) 3.27 H* 03/23/21 10:05: Sodium 128 L, Potassium 2.8 L, Chloride 86 L, Carbon Dioxide 32.0, Anion Gap 10, BUN 12, Creatinine 0.58, Estim Creat Clear Calc 41.40, Est GFR (MDRD) Af Amer 131, Est GFR (MDRD) Non-Af 109, BUN/Creatinine Ratio 20.6 H, Glucose 133 H, Calcium 8.1 L, Total Bilirubin 0.90, AST 94 H, ALT 86 H, Alkaline Phosphatase 74, Troponin I High Sens 114 H, Total Protein 6.8, Albumin 2.6 L, Globulin 4.2, Albumin/Globulin Ratio 0.6 L 03/23/21 10:05: Lactic Acid 2.3 H* 03/23/21 10:05: Procalcitonin 0.14 H 03/23/21 10:05: Magnesium 1.7 03/23/21 10:05: B-Natriuretic Peptide 31.1 03/23/21 10:58: COVID-19 (BENITO) Detected 03/23/21 11:15: Urine Color Yellow, Urine Clarity Clear, Urine pH 6.5, Ur Specific [place] 1.010, Urine Protein 100 H, Urine Glucose (UA) 100 H, Urine Ketones 5 H, Urine Occult Blood 50 H, Urine Nitrite Negative, Urine Bilirubin 1 H, Urine Urobilinogen 8 H, Ur Leukocyte Esterase 25 H, Urine RBC 0-5 SEEN, Urine WBC 0-5 SEEN, Ur Squamous Epith Cells 0-5 SEEN, Urine Bacteria 0 SEEN, Urine Mucus 0 SEEN Micro: Microbiology 03/23/21 09:55 Nasal Secretion SARS-CoV-2 Antigen (Rapid) - Final Radiology Impression Chest X-Ray 03/23/21 09:56 IMPRESSION: Multi lobar pneumonia which is more pronounced in the left lung. COVID Pneumonia should be excluded. Electronically Signed: Max Oswald MD at 10:28 EDT Tel , Service support , Chest CTA 03/23/21 13:07 IMPRESSION: Significantly limited study. No central or proximal segmental pulmonary embolus. The remainder of the examination is nondiagnostic. No thoracic aortic aneurysm or dissection. Multifocal ground glass opacities throughout both lungs, consistent with pneumonia. Hepatic cysts. Electronically Signed: Max Oswald MD at 13:57 EDT Tel , Service support ,
[2021-03-23] MEDS: Enoxaparin 40 MG/0.4 ML Syringe SC (21:08)
[2021-03-23 21:31] LABS: Alkaline Phosphatase 82 U/L (45-117); Anion Gap 9 (5-15); BUN 10 mg/dL (7-18); BUN/Creat Ratio 17.3 RATIO (10-20); Chloride 89 mmol/L (98-107); Creatinine, Serum 0.58 mg/dL (0.55-1.02); EST Glomerular Filtration Rate 109 mL/min (>60); Est Glom Filt Rate - Afr Amer 132 mL/min (>60); Glucose 170 mg/dL (74-106); Potassium 3.5 mmol/L (3.5-5.1); Sodium Level 128 mmol/L (136-145)
[2021-03-24] VITALS (40 sets, daily range): BP systolic 87–168; BP diastolic 36–91; PULSE 68–116; RESP 14–47; TEMP 36.4–38.1; O2SAT 72–97
[2021-03-24] MEDS: Haloperidol Lactate 5 MG/ML Vial IV (01:15)
[2021-03-24] MEDS: Potassium Chloride 10mEq/100mL 10 MEQ/100 ML IV.SOLN. 100 MEQ IV BOLUS ×6 (01:16→11:56)
--- NOTE | 2021-03-24 01:50 | NURSING ---
0140- Patient was originally proned position to help better her O2 saturations and maxed on Bipap. Bipap settings were IPAP 18, EPAP 12, FiO2 100%. Patient became restless and agitated and was assisted back to a semi-white's position. When patient was flipped back to this position she slowly began to drop her O2 sats to mid 80s once again and started to became intermittently confused: A+Ox2- self, place. At this time I called Dr. Mccoy to come assess patient for intubation. 0145- Dr. Mccoy is a bedside and RN and RT are preparing for intubation. 0154 Etomidate 20mg IVP given 0155- Patient is successfully intubated with 7.5mm ETT, 25@ the teeth. Positive color change and bilateral breath sounds are noted. OG is placed. STAT chest x-ray is ordered to confirm placement. 0200- Propofol and Fentanyl for continuous sedation is started. Please see SEP 204- Chest x-ray is completed and Dr. Mccoy gave verbal approval for placement of ETT and OG. 0215- Due to coughing and agitation Dr. Mccoy ordered Versed 2mg IVP. Versed 2mg IVP is given at this time.
[2021-03-24] MEDS: Etomidate 20 MG/10 ML Vial IV (01:54)
[2021-03-24] MEDS: Propofol 10MG/Ml 1,000 MG/100 ML Bottle 7.1 MG CONT INF (02:00)
[2021-03-24] MEDS: Midazolam 2 MG/2 ML Syringe IV (02:15)
--- NOTE | 2021-03-24 02:15 | RAD_ITS ---
STUDY: X-RAY CHEST REASON FOR EXAM: Female, 70 years old. ET Tube placement TECHNIQUE: 1 view COMPARISON: 10/31/2011 FINDINGS: ET tube 1.6 cm above the elan. Enteric tube in the gastric body. Multifocal airspace opacities bilaterally, due to aspiration or multifocal pneumonia. Questionable small left-sided pleural effusion. Unremarkable cardiac silhouette. No pneumothorax. Multilevel thoracic spondylosis. Electronically Signed: Edd Andre MD at 3:24 EDT Tel , Service support , RAD/Chest 1 View (Portable)
--- NOTE | 2021-03-24 02:18 | PCM.PN.INT ---
Assessment & Plan Assessment/Plan (1) Acute respiratory failure due to COVID-19: (2) Osteoarthritis: PLAN: RECOMMENDATIONS: 1. Agree with remdesivir and Decadron 2. Consider infectious disease consult for MIRZA therapy 3. Diuretics as possible given renal function 4. Increase PEEP as necessary to maintain appropriate saturations 5. Prophylactic Lovenox twice daily given lack of PE on CTA 6. Obtain sputum culture to rule out concomitant bacterial infection 7. Await morning labs IMPRESSIONS: 1. Acute hypoxic respiratory failure secondary to COVID-19 pneumonia Patient would qualify for Decadron and Remdesivir therapy. Consider infectious disease consult for additional anti-inflammatories. Agree with work-up for secondary bacterial infection, but procalcitonin is not impressive. Patient currently intubated. Continue to titrate PEEP as necessary to maintain appropriate saturations. Obtain sputum culture to evaluate for superinfection. Initiate propofol and fentanyl. Chest x-ray shows some fluid in the fissure, so diuretics will be administered. Potassium is more appropriate, but another K rider will likely be necessary given Lasix. 2. Severe hypokalemia/hypomagnesemia/hyponatremia Likely secondary to GI losses. Aggressive supplementation as appropriate. Patient may need Lasix therapy to compensate for required volumes. 3. Morbid obesity/hypertension/unvaccinated status Complicates care, management, recovery and prognosis. Hold antihypertensives for now. Recommend Pepcid and Lovenox prophylaxis. Did confirm patient is a full code. Addendum 11:23 AM: Patient with persistent saturations in the 70s and 80s despite 100% FiO2 and 16 of PEEP. Extensive lavage was attempted using inline suction with some secretions noted. There was some concern for mucous plugging as an etiology of persistent hypoxia. It was decided that a bronchoscopy for airway inspection would be reasonable. Attempts to reach the were unsuccessful, so it was decided that emergency consent would be used. Bronchoscopy findings described above. TIME: 82 minutes critical care time, excluding bronchoscopy, spent addressing patient's acute hypoxic respiratory failure, electrolyte imbalances, review of all data and collaboration with care team (1:30 AM to 2:30 AM, 7 AM to 11 AM) Subjective Subjective Patient did well initially in the prone position for approximately 3 hours. Patient then started become anxious and attempted to roll herself over independently. Patient was helped by staff, but subsequently remained in the mid to low 80s for approximately half hour. I was called to evaluate the patient. Patient was able to open her eyes and denied any pain. Patient was acceptable to being placed on the ventilator. Objective Data Objective Data Intubation: Patient noted to be saturating in the mid 80s on BiPAP 100%. It was decided the patient would be semiurgently intubated. Consent from the patient. After proper supplies were gathered, the patient was given 20 mg of etomidate. A MAC 3 glide scope blade to visualize the cords. Patient with thick dried secretions obstructing the airway. These were unable to be removed with suction, but could be moved out of the way. A 7.5 endotracheal tube was then placed to 25 cm at the teeth with direct visualization through the cords. Positive color change, bilateral breath sounds and tube condensation were all used to confirm tube placement. OG was then placed. Chest x-ray showed appropriate positions. Patient was noted to have saturations in the 70s, so 2 mg of Versed was given to help with vent synchrony. Patient was also increased on PEEP until appropriate saturations were reached. Bronchoscopy: Patient with significant desaturations noted between 9 AM and 11 AM. Attempted to reach the for consent, but given concerns for mucous plugging, emergent protocol was used. Using the glide scope bronchoscope, the airway was inspected. Endotracheal tube was slightly deep at approximately 1 cm above the elan. This was withdrawn 2 cm. Extreme airway erythema noted. Some mild mucus plugging appreciated, but no significant airway collapse from plugging. Approximately 100 cc of saline was instilled and removed through suctioning. Approximately 20 cc of mucus removed. Given the lack of significant mucus plugging, patient was transitioned to APRV with improvement in saturations. Cultures had already been obtained earlier in the day, so BAL was not obtained. Vital Signs: Vital Signs Temp Pulse Resp BP Pulse Ox 37.4 C H 116 H 24 H 133/61 H 77 03/24/21 00:00 03/24/21 02:10 03/24/21 02:10 03/24/21 01:00 03/24/21 02:15 Oxygen Flow Rate (L/min) 100 Oxygen Delivery Method Bi-pap Weight: 117.8 kg Body Mass Index (BMI) 47.7 Intake & Output: Intake and Output for Last 24 Hours 03/22/21 03/23/21 03/24/21 23:59 23:59 23:59 Intake Total 827.33 / 827.33 100 / 100 Output Total 1000 / 1700 700 / 700 Balance -172.67 / -872.67 -600 / -600 Lab / Micro Data Result Diagrams: 03/24/21 04:45 03/24/21 04:45 Labs: Laboratory Results - last 24 hr 03/23/21 10:05: WBC 8.6, RBC 5.02, Hgb 14.5, Hct 43.0, MCV 85.7, MCH 28.9, MCHC 33.7, RDW Std Deviation 40.7, RDW Coeff of Sebastian 13.1, Plt Count 352, MPV 8.9, Immature Gran % (Auto) 1.600 H, Neut % (Auto) 80.4 H, Lymph % (Auto) 10.7 L, [place] % (Auto) 7.1, Eos % (Auto) 0.0, Baso % (Auto) 0.2, Absolute Neuts (auto) 6.9, Absolute Lymphs (auto) 0.92, Nucleated RBC % 0 03/23/21 10:05: D-Dimer Quant (PE/DVT) 3.27 H* 03/23/21 10:05: Sodium 128 L, Potassium 2.8 L, Chloride 86 L, Carbon Dioxide 32.0, Anion Gap 10, BUN 12, Creatinine 0.58, Estim Creat Clear Calc 41.40, Est GFR (MDRD) Af Amer 131, Est GFR (MDRD) Non-Af 109, BUN/Creatinine Ratio 20.6 H, Glucose 133 H, Calcium 8.1 L, Total Bilirubin 0.90, AST 94 H, ALT 86 H, Alkaline Phosphatase 74, Troponin I High Sens 114 H, Total Protein 6.8, Albumin 2.6 L, Globulin 4.2, Albumin/Globulin Ratio 0.6 L 03/23/21 10:05: Lactic Acid 2.3 H* 03/23/21 10:05: Procalcitonin 0.14 H 03/23/21 10:05: Magnesium 1.7 03/23/21 10:05: B-Natriuretic Peptide 31.1 03/23/21 10:58: COVID-19 (BENITO) Detected 03/23/21 11:15: Urine Color Yellow, Urine Clarity Clear, Urine pH 6.5, Ur Specific [place] 1.010, Urine Protein 100 H, Urine Glucose (UA) 100 H, Urine Ketones 5 H, Urine Occult Blood 50 H, Urine Nitrite Negative, Urine Bilirubin 1 H, Urine Urobilinogen 8 H, Ur Leukocyte Esterase 25 H, Urine RBC 0-5 SEEN, Urine WBC 0-5 SEEN, Ur Squamous Epith Cells 0-5 SEEN, Urine Bacteria 0 SEEN, Urine Mucus 0 SEEN 03/23/21 20:50: Sodium 128 L, Potassium 3.5, Chloride 89 L, Carbon Dioxide 30.0, Anion Gap 9, BUN 10, Creatinine 0.58, Estim Creat Clear Calc 39.50, Est GFR (MDRD) Af Amer 132, Est GFR (MDRD) Non-Af 109, BUN/Creatinine Ratio 17.3, Glucose 170 H, Calcium 8.0 L, Alkaline Phosphatase 82 Micro: Microbiology 03/23/21 10:58 Mucosa - Nasopharyngeal Respiratory Panel (PCR) - Final 03/23/21 21:20 Urine Catheter - Beck Legionella Antigen - Final 03/23/21 21:20 Urine Catheter - Beck Streptococcus pneumoniae Antigen (M - Final 03/23/21 09:55 Nasal Secretion SARS-CoV-2 Antigen (Rapid) - Final Radiography Diagnostic Testing: Radiology Impression Chest X-Ray 03/23/21 09:56 IMPRESSION: Multi lobar pneumonia which is more pronounced in the left lung. COVID Pneumonia should be excluded. Electronically Signed: Max Oswald MD at 10:28 EDT Tel , Service support , Chest CTA 03/23/21 13:07 IMPRESSION: Significantly limited study. No central or proximal segmental pulmonary embolus. The remainder of the examination is nondiagnostic. No thoracic aortic aneurysm or dissection. Multifocal ground glass opacities throughout both lungs, consistent with pneumonia. Hepatic cysts. Electronically Signed: Max Oswald MD at 13:57 EDT Tel , Service support , Physical Exam Const General Appearance: well developed, in distress Positive for moderate, intubated and patient mechanically ventilated Nutritional Appearance: morbidly obese HEENT normocephalic, head/scalp atraumatic and moist oral mucous membranes Eyes PERRL and EOMs intact bilaterally Neck full ROM and no lymphadenopathy Chest inspection of chest normal Resp Auscultation: rales and diminished lung sounds; Negative for rhonchi or wheezes Percussion: Negative for dullness Cardio regular rate, regular rhythm, S1 normal heart sound, S2 normal heart sound, no murmurs, no rub and no gallops GI normal to inspection, nondistended, normoactive bowel sounds no CVA tenderness Extremity General Extremity: edema bilateral lower extremity (2+); Negative for clubbing or cyanosis Skin no rashes or lesions noted Neuro oriented x3, CN's II-XII intact bilaterally, moves all extremities and no focal motor deficits Psych cooperative and affect normal Charges/Coding Procedures Hospitalists Procedures: 37783 Critial Care 1st Hr Procedures Pulmonary CF Procedures 30xxx-32xxx: 69705 Dx bronchoscope/lavage Multi Select Codes Hospitalists' Procedures Procedures: 45011 Critial Care Addl 30 Min
[2021-03-24 02:45] LABS: CPK Total, Creatine Kinase 249 U/L (26-192); Triglycerides 108 mg/dL
[2021-03-24 03:05] LABS: Allen Test Positive; Base Excess 4 mmol/L (-2 to +2); Bicarbonate 29.1 mmol/L (22-26); Blood Gas Specimen Type ART; FI02 100; Mode AC; O2 Delivery Device Adult Vent; PEEP 14; PO2 76 mmHG (75-100); RR 14; SITE L Radial; SO2 94 % (95-99); Total Carbon Dioxide 31 mmol/L; Vt 400; pCO2 51.7 mmHg (35-45); pH 7.36 (7.35-7.45)
[2021-03-24] MEDS: Propofol 10MG/Ml 1,000 MG/100 ML Bottle 35.3 MG CONT INF (04:00)
[2021-03-24] MEDS: Furosemide 40 MG/4 ML Vial IV ×2 (04:45→13:23)
[2021-03-24 04:55] LABS: Absolute Lymphocyte Count 0.78 X10^3/uL (0.83-4.51); Absolute Neutrophil Count 11.9 X10^3/uL (2.0-7.7); Basophil# 0.02 X10^3/uL; Basophil% 0.1 % (0-1); Hematocrit 40.5 % (37-47); Hemoglobin 13.2 g/dL (12.0-15.0); Lymphocyte # 0.78 X10^3/ul (0.83-4.51); Lymphocyte % 5.7 % (19-41); Mean Corp Hgb Conc 32.6 g/dL (32-36); Mean Corpuscular Hgb 28.8 pg (27.0-32.0); Mean Corpuscular Volume 88.2 fL (81-99); Mean Platelet Vol. 9.3 fl (6.2-12.0); Monocyte# 0.79 X10^3/uL; Monocyte% 5.8 % (0-10); NRBC Flagged by Analyzer 0 % (0-5); Neutrophil # 11.88 X10^3/uL (2.7-7.7); Neutrophil % 87.1 % (47-70); Platelet Count 288 K/mm3 (150-450); RBC Distribution Width CV 13.2 % (11.6-14.6); RBC Distribution Width SD 42.9 fl (35.1-43.9); Red Blood Count 4.59 M/mm3 (4.2-5.4); White Blood Count 13.7 K/mm3 (4.4-11.0)
[2021-03-24 05:23] LABS: ALB/GLOB Ratio 0.6 RATIO (0.9-2.4); AST(SGOT) 85 U/L (15-37); Alanine Aminotransfer ALT/SGPT 75 U/L (13-56); Albumin, Serum 2.2 g/dL (3.2-5.0); Alkaline Phosphatase 72 U/L (45-117); Anion Gap 5 (5-15); BUN 14 mg/dL (7-18); Calcium,Total 7.3 mg/dL (8.5-10.1); Chloride 93 mmol/L (98-107); EST Glomerular Filtration Rate 88 mL/min (>60); Est Glom Filt Rate - Afr Amer 106 mL/min (>60); Globulin 3.8 g/dL (2.2-4.2); Glucose 140 mg/dL (74-106); Magnesium 2.5 mg/dL (1.6-2.6); Potassium 3.5 mmol/L (3.5-5.1); Sodium Level 131 mmol/L (136-145)
[2021-03-24] MEDS: Propofol 10MG/Ml 1,000 MG/100 ML Bottle 31.8 MG CONT INF (06:45)
[2021-03-24] MEDS: Ipratropium/Albuterol Sulfate 3 ML AMPUL.NEB INHALATION ×2 (07:05→10:51)
[2021-03-24] MEDS: CHLORHEXIDINE GLUC 2% CLOTH 1 EACH TOWELETTE TOPICAL (08:53)
[2021-03-24] MEDS: dexAMETHasone 4 MG Tablet 6 MG PO (10:54)
[2021-03-24] MEDS: Famotidine 20 MG Tablet GT ×2 (10:54→21:50)
[2021-03-24] MEDS: Enoxaparin 40 MG/0.4 ML Syringe SC ×2 (10:54→21:50)
[2021-03-24] MEDS: Chlorhexidine 15 ML PO ×2 (10:55→21:49)
--- NOTE | 2021-03-24 12:24 | PCM.PN.HOSP ---
Subjective Subjective Patient was seen and examined. She was intubated early this morning. Oxygen requirements remain high. Had bronchoscopy done today, because aspirated. Objective Data Objective Data Vital Signs: Vital Signs Temp Pulse Resp BP Pulse Ox 97.7 F L 23 L 37 H 114/63 94 03/24/21 08:00 03/24/21 11:18 03/24/21 11:18 03/24/21 09:00 03/24/21 11:18 Oxygen Flow Rate (L/min) 100 Oxygen Delivery Method Mechanical Ventilator Weight: 116.3 kg Body Mass Index (BMI) 47.7 Intake & Output: Intake and Output for Last 24 Hours 03/22/21 03/23/21 03/24/21 23:59 23:59 23:59 Intake Total 952.33 / 952.33 1027.01 / 1027.01 Output Total 1000 / 1700 1150 / 1150 Balance -47.67 / -747.67 -122.99 / -122.99 Lab / Micro Data Result Diagrams: 03/24/21 04:45 03/24/21 04:45 Labs: Laboratory Results - last 24 hr 03/23/21 10:05: Magnesium 1.7 03/23/21 10:05: B-Natriuretic Peptide 31.1 03/23/21 10:58: COVID-19 (BENITO) Detected 03/23/21 20:50: Sodium 128 L, Potassium 3.5, Chloride 89 L, Carbon Dioxide 30.0, Anion Gap 9, BUN 10, Creatinine 0.58, Estim Creat Clear Calc 39.50, Est GFR (MDRD) Af Amer 132, Est GFR (MDRD) Non-Af 109, BUN/Creatinine Ratio 17.3, Glucose 170 H, Calcium 8.0 L, Alkaline Phosphatase 82 03/23/21 20:50: Total Creatine Kinase 249 H, Triglycerides 108 03/24/21 04:45: WBC 13.7 H, RBC 4.59, Hgb 13.2, Hct 40.5, MCV 88.2, MCH 28.8, MCHC 32.6, RDW Std Deviation 42.9, RDW Coeff of Sebastian 13.2, Plt Count 288, MPV 9.3, Immature Gran % (Auto) 1.300 H, Neut % (Auto) 87.1 H, Lymph % (Auto) 5.7 L, [place] % (Auto) 5.8, Eos % (Auto) 0.0, Baso % (Auto) 0.1, Absolute Neuts (auto) 11.9 H, Absolute Lymphs (auto) 0.78 L, Nucleated RBC % 0 03/24/21 04:45: Sodium 131 L, Potassium 3.5, Chloride 93 L, Carbon Dioxide 33.0 H, Anion Gap 5, BUN 14, Creatinine 0.70, Estim Creat Clear Calc 39.50, Est GFR (MDRD) Af Amer 106, Est GFR (MDRD) Non-Af 88, BUN/Creatinine Ratio 20.0, Glucose 140 H, Calcium 7.3 L, Magnesium 2.5, Total Bilirubin 0.70, AST 85 H, ALT 75 H, Alkaline Phosphatase 72, Total Protein 6.0 L, Albumin 2.2 L, Globulin 3.8, Albumin/Globulin Ratio 0.6 L Micro: Microbiology 03/24/21 02:10 Sputum, Induced/Lukens Gram Stain - Final 03/23/21 10:58 Mucosa - Nasopharyngeal Respiratory Panel (PCR) - Final 03/23/21 21:20 Urine Catheter - Beck Legionella Antigen - Final 03/23/21 21:20 Urine Catheter - Beck Streptococcus pneumoniae Antigen (M - Final 03/23/21 09:55 Nasal Secretion SARS-CoV-2 Antigen (Rapid) - Final ABG Data ABG results: ABG 03/24/21 03:02 Specimen Type ART Sample Site L Radial pH 7.36 Bicarbonate Actual 29.1 H Total CO2 31 Base Excess 4 H O2 Saturation 94 L O2 % 100 ABG pCO2 51.7 H ABG pO2 76 Gaetano Test Positive Respiration Rate 14 O2 Delivery Device Adult Vent Vent Mode AC Tidal Volume 400 POC PEEP 14 Radiography Diagnostic Testing: Radiology Impression Chest CTA 03/23/21 13:07 IMPRESSION: Significantly limited study. No central or proximal segmental pulmonary embolus. The remainder of the examination is nondiagnostic. No thoracic aortic aneurysm or dissection. Multifocal ground glass opacities throughout both lungs, consistent with pneumonia. Hepatic cysts. Electronically Signed: Max Oswald MD at 13:57 EDT Tel , Service support , Chest X-Ray 03/24/21 02:15 Physical Exam Narrative Physical exam: General: Sedated, intubated, on mechanical ventilator HEENT: Atraumatic, ET tube in Oral: Moist Mucosa Neck: Supple Lungs: Diminished to auscultation Cardiovascular: HS I+II, regular, no murmurs Abdomen: Bowel Sounds Present, Soft, Non Tender Extremities: No edema Assessment & Plan Assessment/Plan (1) Acute respiratory failure due to COVID-19: (2) Osteoarthritis: (3) Elevated d-dimer: (4) Hypokalemia: (5) Hypomagnesemia: (6) Lactic acidosis: (7) Hyponatremia: PLAN: 1. Acute hypoxic respiratory failure secondary to COVID-19 pneumonia, worsening Status post intubation on 03/24/21 Chest x-ray showed multilobar pneumonia more pronounced in the left lung CTA of the chest was negative for acute PE, showed multifocal groundglass opacities throughout both lungs Continue with breathing treatments, IV steroids, remdesivir Encourage use of incentive spirometer. Wean off oxygen for SPO2 more than 94% Urine streptococcal and Legionella antigen -negative Pulmonology consulted Consult ID 2. Electrolyte imbalances?severe hypokalemia, hypomagnesemia, hyponatremia, secondary to COVID-19 pneumonia and diarrhea Improving, will continue to hold hydrochlorothiazide, recheck in a.m. 3. Acute diarrhea likely secondary to COVID-19 pneumonia Stool for enteric panel pending 4. Elevated D-dimer, CTA of the chest is negative Continue on Lovenox twice daily 5. Rest of chronic medical conditions including morbid obesity, hypertension -remained stable Charges/Coding Visit Charges Inpatient E&M: 06916 [facility] L3
[2021-03-24] MEDS: 0.9% Saline Lock 10 ML Syringe IV (13:23)
[2021-03-24] MEDS: Vital High Protein 1,000 ML 65 ML GT (13:24)
--- NOTE | 2021-03-24 19:14 | CON.PCM.ID_ITS ---
Assessment & Plan Assessment/Plan (1) Acute respiratory failure due to COVID-19: PLAN: On dex, remdesivir. Quarantine for 20 days from start of symptoms. Reportedly received covid vaccine 2 weeks ago. Tocilizumab not available, do not have evidence at this point of benefit of baricitinib in intubated pt. Will follow, thank you HPI Consult Data Date of Consult: 03/24/21 HPI Narrative HPI Narrative: JAMES BURTON, is a 70 F who presented to ED 03/23 with dyspnea, diarrhea, not feeling well. Reportedly had 1st dose of vaccine 2 weeks ago. Pt put on bipap, then intubated, now on 100%fiO2 in icu and unable to provide history or ROS. [facility] Medical History CPAP (continuous positive airway pressure) dependence Hypertension Sleep apnea Home Medications aspirin 325 mg PO BIDCM #60 tablet 08/12/15 [Rx Last Taken Unknown] hydrocodone-acetaminophen 1 - 2 tab PO Q4H PRN PRN #90 tablet 08/12/15 [Rx Last Taken Unknown] scopolamine base 1.5 mg TRANSDERMAL Q3D #5 patch 08/12/15 [Rx Last Taken Unknown] cephalexin 500 mg PO 03/23/21 [History Last Taken Unknown] hydrochlorothiazide 12.5 mg PO DAILY 03/23/21 [History Last Taken Unknown] Allergy/AdvReac Type Severity Reaction Status Date / Time Sulfa (Sulfonamide Allergy Mucosal Verified 03/23/21 09:52 Antibiotics) lesions meperidine HCl [From Demerol] AdvReac Nausea/Vom/ Verified 03/23/21 09:52 Diarrhea Family History Mother No problems noted. Social History household members: spouse Smoking Status: Never smoker Physical Exam Const Constitutional Narrative: ill appearing HEENT head/scalp atraumatic Eyes PERRL Neck supple and No nodes Resp Effort and Inspection: mechanically ventilated Auscultation: diminished lung sounds Cardio regular rate and regular rhythm GI normal to inspection, nondistended, normoactive bowel sounds Extremity General Extremity: edema Skin no rashes or lesions noted Neuro CN's II-XII intact bilaterally Lab / Micro Data Result Diagrams: 03/24/21 04:45 03/24/21 04:45 Labs: Laboratory Results - last 24 hr 03/23/21 20:50: Sodium 128 L, Potassium 3.5, Chloride 89 L, Carbon Dioxide 30.0, Anion Gap 9, BUN 10, Creatinine 0.58, Estim Creat Clear Calc 39.50, Est GFR (MDRD) Af Amer 132, Est GFR (MDRD) Non-Af 109, BUN/Creatinine Ratio 17.3, Glucose 170 H, Calcium 8.0 L, Alkaline Phosphatase 82 03/23/21 20:50: Total Creatine Kinase 249 H, Triglycerides 108 03/24/21 04:45: WBC 13.7 H, RBC 4.59, Hgb 13.2, Hct 40.5, MCV 88.2, MCH 28.8, MCHC 32.6, RDW Std Deviation 42.9, RDW Coeff of Sebastian 13.2, Plt Count 288, MPV 9.3, Immature Gran % (Auto) 1.300 H, Neut % (Auto) 87.1 H, Lymph % (Auto) 5.7 L, [place] % (Auto) 5.8, Eos % (Auto) 0.0, Baso % (Auto) 0.1, Absolute Neuts (auto) 11.9 H, Absolute Lymphs (auto) 0.78 L, Nucleated RBC % 0 03/24/21 04:45: Sodium 131 L, Potassium 3.5, Chloride 93 L, Carbon Dioxide 33.0 H, Anion Gap 5, BUN 14, Creatinine 0.70, Estim Creat Clear Calc 39.50, Est GFR (MDRD) Af Amer 106, Est GFR (MDRD) Non-Af 88, BUN/Creatinine Ratio 20.0, Glucose 140 H, Calcium 7.3 L, Magnesium 2.5, Total Bilirubin 0.70, AST 85 H, ALT 75 H, Alkaline Phosphatase 72, Total Protein 6.0 L, Albumin 2.2 L, Globulin 3.8, Albumin/Globulin Ratio 0.6 L Micro: Microbiology 03/24/21 02:10 Sputum, Induced/Lukens Gram Stain - Final 03/23/21 10:58 Mucosa - Nasopharyngeal Respiratory Panel (PCR) - Final 03/23/21 21:20 Urine Catheter - Beck Legionella Antigen - Final 03/23/21 21:20 Urine Catheter - Beck Streptococcus pneumoniae Antigen (M - Final ABG Data ABG results: ABG 03/24/21 03:02 Specimen Type ART Sample Site L Radial pH 7.36 Bicarbonate Actual 29.1 H Total CO2 31 Base Excess 4 H O2 Saturation 94 L O2 % 100 ABG pCO2 51.7 H ABG pO2 76 Gaetano Test Positive Respiration Rate 14 O2 Delivery Device Adult Vent Vent Mode AC Tidal Volume 400 POC PEEP 14 Radiology Impression Chest X-Ray 03/24/21 02:15
[2021-03-24] MEDS: Acetaminophen 325 MG Tablet 650 MG PO (21:50)
[2021-03-25] VITALS (39 sets, daily range): BP systolic 85–121; BP diastolic 48–73; PULSE 66–112; RESP 14–50; TEMP 37.9–39.6; O2SAT 86–98
[2021-03-25 04:10] LABS: Hematocrit 42.3 % (37-47); Hemoglobin 13.6 g/dL (12.0-15.0); Mean Corp Hgb Conc 32.2 g/dL (32-36); Mean Corpuscular Hgb 28.6 pg (27.0-32.0); Mean Corpuscular Volume 89.1 fL (81-99); Mean Platelet Vol. 9.2 fl (6.2-12.0); POSITIVE DIFFERENTIAL YES; Platelet Count 236 K/mm3 (150-450); RBC Distribution Width CV 13.6 % (11.6-14.6); RBC Distribution Width SD 44.5 fl (35.1-43.9); Red Blood Count 4.75 M/mm3 (4.2-5.4); Scan Indicated on CBC? Y/N YES- FLAGS NOTED; White Blood Count 22.2 K/mm3 (4.4-11.0)
[2021-03-25 04:33] LABS: ALB/GLOB Ratio 0.5 RATIO (0.9-2.4); AST(SGOT) 77 U/L (15-37); Alanine Aminotransfer ALT/SGPT 62 U/L (13-56); Albumin, Serum 2.1 g/dL (3.2-5.0); Alkaline Phosphatase 74 U/L (45-117); Anion Gap 6 (5-15); BUN 33 mg/dL (7-18); BUN/Creat Ratio 30.6 RATIO (10-20); Calcium,Total 7.3 mg/dL (8.5-10.1); Chloride 94 mmol/L (98-107); Creatinine, Serum 1.08 mg/dL (0.55-1.02); Differential Comment SCANNED; EST Glomerular Filtration Rate 53 mL/min (>60); Est Glom Filt Rate - Afr Amer 64 mL/min (>60); Estimated Creatinine Clearance 36.58 ml/min; Glucose 132 mg/dL (74-106); Protein, Total 6.1 g/dL (6.4-8.2); Sodium Level 130 mmol/L (136-145)
[2021-03-25 05:06] LABS: Allen Test Positive; Base Excess 2 mmol/L (-2 to +2); Bicarbonate 26.3 mmol/L (22-26); Blood Gas Specimen Type ART; FI02 90; Mode BiLevel; O2 Delivery Device Adult Vent; PO2 73 mmHG (75-100); RR 12; SITE L Radial; SO2 94 % (95-99); Total Carbon Dioxide 28 mmol/L; pCO2 42.3 mmHg (35-45)
--- NOTE | 2021-03-25 07:40 | PN.CC_ITS ---
Assessment & Plan Assessment/Plan (1) Acute respiratory failure due to COVID-19: (2) Osteoarthritis: PLAN: RECOMMENDATIONS: 1. Agree with remdesivir and Decadron 2. Continue to monitor liver function with remdesivir 3. Diuretics as possible given renal function 4. Attempt to wean P high in FiO2 as tolerates 5. Prophylactic Lovenox twice daily given lack of PE on CTA 6. Await sputum culture 7. Hold on diuretics for now IMPRESSIONS: 1. Acute hypoxic respiratory failure secondary to COVID-19 pneumonia Patient would qualify for Decadron and Remdesivir therapy. Consider infectious disease consult for additional anti-inflammatories. Agree with work- up for secondary bacterial infection, but procalcitonin is not impressive. Patient currently intubated. Patient appears to be responding to APRV well. ABG shows adequate oxygenation and ventilation bronchoscopy for mucous plugging was relatively unremarkable, but did have significant airway inflammation. Await sputum culture to evaluate for superinfection. Continue propofol and fentanyl. We will hold on Lasix for today 2. Severe hypokalemia/hypomagnesemia/hyponatremia Resolved. Likely secondary to GI losses. Aggressive supplementation as appropriate. Patient may need Lasix therapy to compensate for required volumes. 3. Morbid obesity/hypertension/unvaccinated status Complicates care, management, recovery and prognosis. Hold antihypertensives for now. Recommend Pepcid and Lovenox prophylaxis. Did confirm patient is a full code. TIME: 32 minutes critical care time, excluding bronchoscopy, spent addressing patient's acute hypoxic respiratory failure, electrolyte imbalances, review of all data and collaboration with care team (5:40 AM to 6:40 AM) Subjective Subjective Patient did well overnight. Patient was able to be taken off of Levophed and blood pressures have been adequate. Patient did spike a little fever overnight, but was responsive to Tylenol. Patient still on maximal vent settings, but synchrony is good. Objective Data Objective Data Vital Signs: Vital Signs Temp Pulse Resp BP Pulse Ox 38.1 C H 91 30 H 112/62 91 03/25/21 04:00 03/25/21 07:00 03/25/21 07:00 03/25/21 07:00 03/25/21 07:00 Oxygen Flow Rate (L/min) 100 Oxygen Delivery Method Mechanical Ventilator Weight: 117.5 kg Body Mass Index (BMI) 47.7 Intake & Output: Intake and Output for Last 24 Hours 03/23/21 03/24/21 03/25/21 23:59 23:59 23:59 Intake Total 952.33 / 952.33 1854.90 / 2019.70 754.05 / 754.05 Output Total 1000 / 1700 1260 / 1360 100 / 100 Balance -47.67 / -747.67 594.90 / 659.70 654.05 / 654.05 Lab / Micro Data Result Diagrams: 03/25/21 03:45 03/25/21 03:45 Labs: Laboratory Results - last 24 hr 03/25/21 03:45: WBC 22.2 H, RBC 4.75, Hgb 13.6, Hct 42.3, MCV 89.1, MCH 28.6, MCHC 32.2, RDW Std Deviation 44.5 H, RDW Coeff of Sebastian 13.6, Plt Count 236, MPV 9.2, Differential Comment SCANNED 03/25/21 03:45: Sodium 130 L, Potassium 4.0, Chloride 94 L, Carbon Dioxide 30.0, Anion Gap 6, BUN 33 H, Creatinine 1.08 H, Estim Creat Clear Calc 36.58, Est GFR (MDRD) Af Amer 64, Est GFR (MDRD) Non-Af 53 L, BUN/Creatinine Ratio 30.6 H, Glucose 132 H, Calcium 7.3 L, Total Bilirubin 0.80, AST 77 H, ALT 62 H, Alkaline Phosphatase 74, Total Protein 6.1 L, Albumin 2.1 L, Globulin 4.0, Albumin/Globulin Ratio 0.5 L Micro: Microbiology 03/24/21 02:10 Sputum, Induced/Lukens Gram Stain - Final 03/23/21 10:58 Mucosa - Nasopharyngeal Respiratory Panel (PCR) - Final 03/23/21 21:20 Urine Catheter - Beck Legionella Antigen - Final 03/23/21 21:20 Urine Catheter - Beck Streptococcus pneumoniae Antigen (M - Final 03/23/21 09:55 Nasal Secretion SARS-CoV-2 Antigen (Rapid) - Final ABG Data ABG results: ABG 03/25/21 04:59 Specimen Type ART Sample Site L Radial pH 7.40 Bicarbonate Actual 26.3 H Total CO2 28 Base Excess 2 O2 Saturation 94 L O2 % 90 ABG pCO2 42.3 ABG pO2 73 L Gaetano Test Positive Respiration Rate 12 O2 Delivery Device Adult Vent Vent Mode BiLevel Clinical Comments Physical Exam Const General Appearance: well developed, in distress Positive for moderate, intubated and patient mechanically ventilated Nutritional Appearance: morbidly obese HEENT normocephalic, head/scalp atraumatic and moist oral mucous membranes Eyes PERRL and EOMs intact bilaterally Neck full ROM and no lymphadenopathy Chest inspection of chest normal Resp Auscultation: rales and diminished lung sounds; Negative for rhonchi or wheezes Percussion: Negative for dullness Cardio regular rate, regular rhythm, S1 normal heart sound, S2 normal heart sound, no murmurs, no rub and no gallops GI normal to inspection, nondistended, normoactive bowel sounds no CVA tenderness Extremity General Extremity: edema bilateral lower extremity (2+); Negative for clubbing or cyanosis Skin no rashes or lesions noted Neuro CN's II-XII intact bilaterally and moves all extremities Neuro Narrative: Positive gag and cough reflexes. Psych cooperative and affect normal Charges/Coding Procedures Hospitalists Procedures: 20279 Critial Care 1st Hr
[2021-03-25] MEDS: CHLORHEXIDINE GLUC 2% CLOTH 1 EACH TOWELETTE TOPICAL (08:22)
[2021-03-25] MEDS: Chlorhexidine 15 ML PO ×2 (08:22→20:42)
[2021-03-25] MEDS: Polyethylene Glycol 3350 17 GM PACKET GT (11:02)
[2021-03-25] MEDS: Enoxaparin 40 MG/0.4 ML Syringe SC ×2 (11:02→20:42)
[2021-03-25] MEDS: dexAMETHasone 4 MG Tablet 6 MG PO (11:02)
[2021-03-25] MEDS: Senna Tablet 2 TABLET GT ×2 (11:02→20:41)
[2021-03-25] MEDS: Famotidine 20 MG Tablet GT (11:03)
[2021-03-25] MEDS: Acetaminophen 650 MG/20 ML UDC PO (11:40)
--- NOTE | 2021-03-25 12:15 | PN.HOSP_ITS ---
Subjective Subjective Patient was seen and examined. She remains intubated. Hypotensive, started on Levophed last night. Oxygen sats are low. Remains febrile Objective Data Objective Data Vital Signs: Vital Signs Temp Pulse Resp BP Pulse Ox 100.5 F H 109 H 47 H 112/62 90 03/25/21 04:00 03/25/21 10:11 03/25/21 10:11 03/25/21 07:00 03/25/21 10:11 Oxygen Flow Rate (L/min) 100 Oxygen Delivery Method Mechanical Ventilator Weight: 117.5 kg Body Mass Index (BMI) 47.7 Intake & Output: Intake and Output for Last 24 Hours 03/23/21 03/24/21 03/25/21 23:59 23:59 23:59 Intake Total 952.33 / 952.33 1854.90 / 2019.70 1733.55 / 1733.55 Output Total 1000 / 1700 1260 / 1360 550 / 550 Balance -47.67 / -747.67 594.90 / 659.70 1183.55 / 1183.55 Lab / Micro Data Result Diagrams: 03/25/21 03:45 03/25/21 03:45 Labs: Laboratory Results - last 24 hr 03/25/21 03:45: WBC 22.2 H, RBC 4.75, Hgb 13.6, Hct 42.3, MCV 89.1, MCH 28.6, MCHC 32.2, RDW Std Deviation 44.5 H, RDW Coeff of Sebastian 13.6, Plt Count 236, MPV 9.2, Differential Comment SCANNED 03/25/21 03:45: Sodium 130 L, Potassium 4.0, Chloride 94 L, Carbon Dioxide 30.0, Anion Gap 6, BUN 33 H, Creatinine 1.08 H, Estim Creat Clear Calc 36.58, Est GFR (MDRD) Af Amer 64, Est GFR (MDRD) Non-Af 53 L, BUN/Creatinine Ratio 30.6 H, Glucose 132 H, Calcium 7.3 L, Total Bilirubin 0.80, AST 77 H, ALT 62 H, Alkaline Phosphatase 74, Total Protein 6.1 L, Albumin 2.1 L, Globulin 4.0, Albumin/Globulin Ratio 0.5 L Micro: Microbiology 03/24/21 02:10 Sputum, Induced/Lukens Gram Stain - Final 03/24/21 02:10 Sputum, Induced/Lukens Respiratory Culture - Preliminary GNR Poss Pseudomonas sp 03/23/21 10:20 Blood Culture (Wb) - Anticubital Right Blood Culture - Preliminary No growth in 48 hours. 03/23/21 10:05 Blood Culture (Wb) - Anticubital Right Blood Culture - Preliminary No growth in 48 hours. 03/23/21 10:58 Mucosa - Nasopharyngeal Respiratory Panel (PCR) - Final 03/23/21 21:20 Urine Catheter - Beck Legionella Antigen - Final 03/23/21 21:20 Urine Catheter - Beck Streptococcus pneumoniae Antigen (M - Final 03/23/21 09:55 Nasal Secretion SARS-CoV-2 Antigen (Rapid) - Final ABG Data ABG results: ABG 03/25/21 04:59 Specimen Type ART Sample Site L Radial pH 7.40 Bicarbonate Actual 26.3 H Total CO2 28 Base Excess 2 O2 Saturation 94 L O2 % 90 ABG pCO2 42.3 ABG pO2 73 L Gaetano Test Positive Respiration Rate 12 O2 Delivery Device Adult Vent Vent Mode BiLevel Clinical Comments Physical Exam Narrative Physical exam: General: Sedated, intubated, on mechanical ventilator HEENT: Atraumatic, ET tube in Oral: Moist Mucosa Neck: Supple Lungs: Diminished to auscultation Cardiovascular: HS I+II, regular, no murmurs Abdomen: Bowel Sounds Present, Soft, Non Tender Extremities: No edema Assessment & Plan Assessment/Plan (1) Acute respiratory failure due to COVID-19: (2) Osteoarthritis: (3) Elevated d-dimer: (4) Hypokalemia: (5) Hypomagnesemia: (6) Lactic acidosis: (7) Hyponatremia: PLAN: 1. Acute hypoxic respiratory failure secondary to ARDS/COVID-19 pneumonia/Pseudomonas pneumonia, worsening Status post intubation on 03/24/21 Chest x-ray showed multilobar pneumonia more pronounced in the left lung CTA of the chest was negative for acute PE, showed multifocal groundglass opacities throughout both lungs Urine streptococcal and Legionella antigen -negative Sputum cultures shows possible Pseudomonas Continue with breathing treatments, IV steroids, remdesivir, Zosyn Encourage use of incentive spirometer. Wean off oxygen for SPO2 more than 94% Pulmonology and ID following 2. MIRANDA, prerenal secondary to dehydration Admitting creatinine was 0.58, creatinine is 1.08 Patient is on tube feeds, cannot give IVF because of current ARDS Will trend 3. Septic shock secondary to Pseudomonas pneumonia/COVID-19 pneumonia Patient was started on Levophed briefly yesterday yesterday, blood pressure remains fairly low Continue 4. Electrolyte imbalances?severe hypokalemia, hypomagnesemia, hyponatremia, secondary to COVID-19 pneumonia and diarrhea Will continue to hold hydrochlorothiazide, recheck in a.m. 4. Acute diarrhea likely secondary to COVID-19 pneumonia, resolved Stool for enteric panel pending 6. Elevated D-dimer, CTA of the chest is negative Continue on Lovenox twice daily 7. Rest of chronic medical conditions including morbid obesity, hypertension - remained stable Charges/Coding Visit Charges Inpatient E&M: 38839 Subs Hosp L3
--- NOTE | 2021-03-25 13:30 | CASEMGMT ---
JITENDRA CHRISTY Face to Face with grandtemoughter for initial transition planning/care coordination assessment as patient is on ventilator at this time. JITENDRA CHRISTY introduced self and role at [facility]. Granddaughter, Emma, willing to participate in assessment and is able to answer all questions appropriately. Care providers, pharmacy, and demographics verified. Grandyumiko wishes for patient to discharge home, denies need for home health at this time. Emma states she has no further needs or concerns at this time. CM to follow for discharge planning needs that may arise. PCP: Denis Specialists: none Preferred Pharmacy: [facility] retail at discharge Insurance: [employer] [facility] Prescription Benefit: yes Living Will/HPOA: none LNOK: , granddaughter Living Arrangements: Patient lives with in a single story home. Patient is independent at home. Transportation: self//granddaughter DME/HHC: Granddaughter unsure of DME at home. no previous HHC or SNF Disposition Plan: TBD by course of treatment and progress with therapy. Yeimi VALDEZN, RN, CM
[2021-03-25] MEDS: Vital High Protein 1,000 ML 65 ML GT (16:08)
--- NOTE | 2021-03-25 16:26 | PCM.PN.ID ---
Physical Exam Narrative On vent, O2 slightly improved this AM Const no apparent distress Resp Auscultation: diminished lung sounds Cardio regular rate and regular rhythm GI normal to inspection, nondistended, normoactive bowel sounds Extremity General Extremity: edema Skin no rashes or lesions noted ID ID: Route of nutrition/ use of supplements: [] Nutritional Intake: [] IV Site: [] Beck Catheter: [] Assessment & Plan Assessment/Plan (1) Acute respiratory failure due to COVID-19: PLAN: On dex, remdesivir. Quarantine for 20 days from start of symptoms. Reportedly received covid vaccine 2 weeks ago. Will follow, remains critically ill
[2021-03-26] VITALS (8 sets, daily range): BP systolic 85–107; BP diastolic 47–69; PULSE 103–124; RESP 30–40; TEMP 38.9–39.5; O2SAT 67–89
[2021-03-26 05:16] LABS: Allen Test Positive; Base Excess 1 mmol/L (-2 to +2); Bicarbonate 28.2 mmol/L (22-26); Blood Gas Specimen Type ART; FI02 100; Mode BiLevel; O2 Delivery Device Adult Vent; PO2 53 mmHG (75-100); RR 12; SITE R Radial; SO2 80 % (95-99); Total Carbon Dioxide 30 mmol/L; pH 7.25 (7.35-7.45)
--- NOTE | 2021-03-26 05:40 | NURSING ---
Pt's p.ox slowly dropping to less than 85%; made aware. This RN and RT Anand in room to lavage ETT, pt yan w/cough+gag response. Inline ETT sxn performed x3 w/time between each. 0605 On third sxn noted pt HR drop to 63 0607 Atropine 1mg dose given per at bedside 0609 CPR started as pt Resp Arrest and the yelitza-cardioarrest
[2021-03-26] MEDS: Acetaminophen 650 MG/20 ML UDC PO (05:48)
--- NOTE | 2021-03-26 05:55 | NURSING ---
notified clarissa Carter of change in condition, difficulty maintaining oxygen and blood pressure. will be in after [phone]. Left message for spouse to call ICU.
[2021-03-26 05:59] LABS: Hematocrit 45.8 % (37-47); Hemoglobin 14.1 g/dL (12.0-15.0); Mean Corp Hgb Conc 30.8 g/dL (32-36); Mean Corpuscular Hgb 28.5 pg (27.0-32.0); Mean Corpuscular Volume 92.5 fL (81-99); Mean Platelet Vol. 10.3 fl (6.2-12.0); Platelet Count 145 K/mm3 (150-450); RBC Distribution Width CV 14.1 % (11.6-14.6); RBC Distribution Width SD 48.1 fl (35.1-43.9); Red Blood Count 4.95 M/mm3 (4.2-5.4)
[2021-03-26 06:19] LABS: ALB/GLOB Ratio 0.4 RATIO (0.9-2.4); AST(SGOT) 97 U/L (15-37); Alanine Aminotransfer ALT/SGPT 58 U/L (13-56); Albumin, Serum 1.8 g/dL (3.2-5.0); Alkaline Phosphatase 70 U/L (45-117); Anion Gap 6 (5-15); BUN 70 mg/dL (7-18); BUN/Creat Ratio 34.3 RATIO (10-20); Chloride 97 mmol/L (98-107); Creatinine, Serum 2.04 mg/dL (0.55-1.02); EST Glomerular Filtration Rate 26 mL/min (>60); Est Glom Filt Rate - Afr Amer 31 mL/min (>60); Estimated Creatinine Clearance 19.36 ml/min; Globulin 4.3 g/dL (2.2-4.2); Glucose 162 mg/dL (74-106); Potassium 4.4 mmol/L (3.5-5.1); Protein, Total 6.1 g/dL (6.4-8.2); Sodium Level 132 mmol/L (136-145)
--- NOTE | 2021-03-26 06:20 | RAD_ITS ---
STUDY: X-RAY CHEST REASON FOR EXAM: Female, 70 years old. Respiratory status change TECHNIQUE: Single AP portable view of the chest. COMPARISON: Comparison is made with prior study dated 03/24/2021. FINDINGS: An endotracheal tube is in situ. The tip is at 3.3 cm approximately elan. A right-sided PICC line catheter has been placed with the tip at the junction of the superior vena cava and right atrium. An orogastric tube is seen with the tip below the left hemidiaphragm. Large left pneumothorax with collapse of the left lung. Patchy infiltrates in the right lung. These have progressed as compared to prior study. Normal size heart. Normal mediastinum and brianna. Normal visualized pulmonary arteries. Normal visualized aortic arch and descending thoracic aorta. Normal visualized thoracic spine. Normal visualized ribs, clavicles, and shoulders. There is no demonstrated abnormality of the visualized soft tissue structures of the upper abdomen. RAD/Chest 1 View (Portable) IMPRESSION: Large left pneumothorax with collapse of the left lung. Infiltrates in the right lung. The referring physician was notified. Electronically Signed: Deni Paz MD at 8:11 EDT , Service support ,
--- NOTE | 2021-03-26 06:23 | PRO.PCM_ITS ---
Assessment & Plan Assessment/Plan (1) Tension pneumothorax, spontaneous: (2) Cardiac arrest: Procedure Report Called to the patient's room at approximately 5:30 AM secondary to hypoxia. Patient was given an amp of bicarb with improvement in blood pressure. A chest x-ray was obtained. At approximately 6:00, the patient lost a pulse. Chest x- ray was just been completed. This showed a large right-sided pneumothorax. Patient was started on CPR. Attempted decompression on the right side. Continued CPR until 6:20 AM. Patient was declared by myself. Cause of would be tension pneumothorax in the setting of Covid pneumonia. Time: 32 minutes of critical care time spent addressing patient's acute hypoxic respiratory failure, hypotension, running code and review of all data Procedures Hospitalists Procedures: 55336 Critial Care 1st Hr
--- NOTE | 2021-03-26 06:31 | PCM.CODE.SUM ---
Code Blue Report Code Blue Summary Code Blue Summary: Patient passed on 03/26/2021 at 6:20 AM.
--- NOTE | 2021-03-26 07:27 | EXP.PCM_ITS ---
Preliminary Cause of Preliminary Cause of Preliminary Cause of : Acute hypoxic respiratory failure secondary to acute tension pneumothorax/acute COVID-19 pneumonia/Pseudomonas pneumonia Severe hypokalemia, hypomagnesemia, hyponatremia Septic shock secondary to Pseudomonas bacteremia Date of Admission: 03/23/21 Principle Diagnosis Problem List: Active and Suspected Problems (Updated 03/26/21 @ 06:[address] Jeremy Mccoy MD) Cardiac arrest (Acute) Tension pneumothorax, spontaneous (Acute) Hyponatremia (Acute) Lactic acidosis (Acute) Hypomagnesemia (Acute) Hypokalemia (Acute) Elevated d-dimer (Acute) Osteoarthritis (Acute) Acute respiratory failure due to COVID-19 (Acute) Hospital Course 70-year-old female who has received 1 dose of COVID-19 vaccine 2 weeks prior comes in with aggressive shortness of breath ongoing for 1 week. Has been was also unwell. Patient denied any loss of smell or taste. She also had diarrhea. She was admitted with 15 L of oxygen on nonrebreather mask. She was admitted to ICU, started on IV remdesivir, IV Decadron, breathing treatment. Client Services Assistant was consulted. Her electrolytes were replaced. Patient's CODE STATUS was full code. She continued to worsen. She was intubated the next morning. Patient however continued to remain febrile. Blood cultures grew Pseudomonas. She will put on appropriate antibiotics. Urine Legionella and streptococcal antigen were negative. Patient however continued to decline, became hypotensive requiring Levophed transiently. Infectious disease was consulted. Did not recommend any additional therapies. Patient became more hypoxic on the day of her demise. Stat chest x-ray showed large right-sided pneumothorax. She however lost her pulse, CPR started. An attempt at decompression on the right was started. Patient however could not regain spontaneous circulation. Assessment & Plan Assessment/Plan (1) Cardiac arrest: (2) Tension pneumothorax, spontaneous: (3) Hyponatremia: (4) Lactic acidosis: (5) Hypomagnesemia: (6) Hypokalemia: (7) Elevated d-dimer: (8) Acute respiratory failure due to COVID-19: (9) Pseudomonas pneumonia: Visit Charges Inpatient E&M: 14228 Disch Hosp
== END 2021-03-26 06:20 | DRG 208 ==
LOC: ED 12:16 → ICU 14:58
PROVIDERS: Internal Medicine Critical Care Medicine; Internal Medicine Infectious Disease; Admitting Provider Internal Medicine; Emergency Provider Student in an Organized Health Care Education/Training Program; PCP Internal Medicine; Visit Provider Internal Medicine
DX: U07.1 COVID-19 (principal); J12.82 Pneumonia due to coronavirus disease 2019; J93.0 Spontaneous tension pneumothorax; J96.01 Acute respiratory failure with hypoxia; J15.1 Pneumonia due to Pseudomonas; R65.21 Severe sepsis with septic shock; A41.89 Other specified sepsis; E87.1 Hypo-osmolality and hyponatremia; Z68.42 Body mass index [BMI] 45.0-49.9, adult; N17.9 Acute kidney failure, unspecified; T17.490A Other foreign object in trachea causing asphyxiation, initial encounter; E66.01 Morbid (severe) obesity due to excess calories; E83.42 Hypomagnesemia; E87.6 Hypokalemia; I95.9 Hypotension, unspecified; R79.89 Other specified abnormal findings of blood chemistry; R19.7 Diarrhea, unspecified; I10 Essential (primary) hypertension; I46.9 Cardiac arrest, cause unspecified; F41.9 Anxiety disorder, unspecified; G47.33 Obstructive sleep apnea (adult) (pediatric); M19.90 Unspecified osteoarthritis, unspecified site; Z79.82 Long term (current) use of aspirin; Z79.899 Other long term (current) drug therapy; Z87.440 Personal history of urinary (tract) infections
CPT/HCPCS: 31500; 31720; 36569; 36600; 71045; 71275; 80048; 80053; 81001; 82550; 82803; 83605; 83735; 83880; 84075; 84145; 84478; 84484; 85025; 85027; 85379; 87040; 87070; 87077; 87184; 87186; 87205; 87426; 87449; 87633; 87635; 92950; 93005; 94002; 94003; 94640; 97802; 99251; 99285; J7030; J7050; Q9967; U0005; A4216; G0463; J1940; J2405; J3010; U0003